=== PATIENT | female | born 1990 | race Caucasian/White ===

== ENCOUNTER 2018-05-30 17:30 | Outpatient (RCR) | payer OTHER, MEDICAID, SELFPAY ==
--- NOTE | 2018-05-31 07:36 | HP.PTREVAL_ITS ---
BI BIRD, It has been my pleasure to treat EVE SUBRAMANIAN over the last 5 visits for Mid- back strain. Please see the progress note below for an update on the physical therapy plan of care! Subjective: Pt. reports 'I am 100% better. She reports no pain at work at this point in time. Pt pleased. Objective/Function: PT. jimmy full ROM of cspine, tspine and lumbar spine without increase in symptoms. No symptoms with over pressures as this point in time. Pt. has 5/5 strength throughout B shoulder, scapular musculature without increase in symptoms. pt. reports no pain at work and no difficulty with sleeping. Pt. reprots being 100% better overall. Plan Plan: Pt. to trial exercises on own for 1-2 weeks. If I do not hear from her after this time period I will DC to [facility]. Pt. consents. Goals Goal 1:: pt reports 0/10 pain in effected musculature at rest Goal Time Frame: 2-4 Weeks Goal Progress: Goal Met Goal 2:: pt able to move through full shoulder range of motion without pain Goal Time Frame: 2-4 Weeks Goal Progress: Goal Met Goal 3:: pt reports no pain when lifting 2-year-old son Goal Time Frame: 2-4 Weeks Goal Progress: Goal Met Anticipated Interventions Patient/Client Instruction: Educate patient on: Condition, Plan of Care, Risk Factors, Benefits of Fitness Program For the Purpose of:: To decrease pain, To increase ROM, To improve muscle performance and motor function, To increase tolerance to activity/condition/position Therapeutic Exercise to Include: Strength training, Power training, Body mechanics, Postural training, Scapular Strength/Stabilization For the Purpose of:: To decrease pain, To increase ROM, To improve muscle performance and motor function, To increase tolerance to activity/conditi on/position, To improve ability of physical actions for home/community/work/leisure, To improve health of tissue Manual Therapy Techniques to Include: Trigger point massage, Massage, Functional dry needling For the Purpose of:: To decrease pain, To decrease swelling/inflammation, To increase ROM, To improve muscle performance and motor function, To improve ability of physical actions for home/community/work/leisure TENS: Yes Other electric stimulation: Yes Cryotherapy (ice pack, ice massage): Yes For the Purpose of:: To decrease pain, To decrease swelling/inflammation, To increase ROM, To improve muscle performance and motor function, To increase tolerance to activity/condition/position, To improve ability of physical actions for home/community/work/leisure Please do not hesitate to contact me at [phone] by phone or Fax: if you have questions or concerns regarding this new plan of care! Sincerely, Patrick Marrero
--- NOTE | 2018-10-28 09:37 | HP.PT.NRP ---
HP - Discharge Summary (1) - Patient Information EVE SUBRAMANIAN was seen in my office for initial evaluation on 04/27/18. The following Plan of Care was established for this patient: Initial Frequency: 2-3x /Week Initial Duration: 4 Weeks - Anticipated Interventions Patient/Client Instruction: Educate patient on: Condition, Plan of Care, Risk Factors, Benefits of Fitness Program For the Purpose of:: To decrease pain, To increase ROM, To improve muscle performance and motor function, To increase tolerance to activity/condition/position Therapeutic Exercise to Include: Strength training, Power training, Body mechanics, Postural training, Scapular Strength/Stabilization For the Purpose of:: To decrease pain, To increase ROM, To improve muscle performance and motor function, To increase tolerance to activity/condition/position, To improve ability of physical actions for home/community/work/leisure, To improve health of tissue Manual Therapy Techniques to Include: Trigger point massage, Massage, Functional dry needling For the Purpose of:: To decrease pain, To decrease swelling/inflammation, To increase ROM, To improve muscle performance and motor function, To improve ability of physical actions for home/community/work/leisure TENS: Yes Other electric stimulation: Yes Cryotherapy (ice pack, ice massage): Yes For the Purpose of:: To decrease pain, To decrease swelling/inflammation, To increase ROM, To improve muscle performance and motor function, To increase tolerance to activity/condition/position, To improve ability of physical actions for home/community/work/leisure This patient was last seen in our office 05/30/18. Pertinent comments regarding their Physical therapy will appear below: Pt. was treated for her mid back strain. Pt. at our last visit with no longer having any pain. Pt. was to trial exercises on her own and follow up with PT if needed. Pt. has not been seen in several months and will be DC from PT at this point in time. At this point I will be discontinuing this patient from physical therapy. I would be happy to see this patient again in the future if found appropriate by the physician. Thank you! Patrick Marrero, LIUT
== END 2018-05-30 19:00 | disposition home or self-care (01) ==
LOC: PT 17:30
PROVIDERS: Family Provider Student in an Organized Health Care Education/Training Program; PCP Student in an Organized Health Care Education/Training Program
DX: S29.012D Strain of muscle and tendon of back wall of thorax, subsequent encounter (principal)
CPT/HCPCS: 97110; 97161; 97530

== ENCOUNTER → 2018-06-07 16:40 | Outpatient (CLI) | payer MEDICAID, SELFPAY ==
[2018-06-15 12:51] LABS: HPV APTIMA, High Risk Negative (Negative)
[2018-06-15 15:58] LABS: HPV Reflexed? NOT INDICATED
== END ==
PROVIDERS: Visit Provider Obstetrics & Gynecology
DX: Z12.4 Encounter for screening for malignant neoplasm of cervix (principal)
CPT/HCPCS: 87624; 88175; G0145

== ENCOUNTER → 2019-09-28 10:52 | Outpatient (CLI) | payer OTHER, SELFPAY ==
[2019-10-02 19:12] LABS: HPV Reflexed? NOT INDICATED
== END ==
PROVIDERS: Visit Provider Obstetrics & Gynecology
DX: Z12.4 Encounter for screening for malignant neoplasm of cervix (principal)
CPT/HCPCS: 88175; G0145

== ENCOUNTER → 2020-04-02 15:47 | Outpatient (CLI) | payer OTHER, SELFPAY ==
[2016-06-30 19:36] VITALS: BMI 31.9
[2020-04-02 16:50] LABS: hCG Titer Quant., Serum < 1 mIU/mL (1-3)
[2020-04-02 17:18] LABS: Progesterone Level 6.25 ng/mL (See Comment)
== END ==
PROVIDERS: Visit Provider Obstetrics & Gynecology
DX: N91.0 Primary amenorrhea (principal)
CPT/HCPCS: 36415; 84144; 84702

== ENCOUNTER 2021-04-01 16:57 | Emergency (ER) | payer OTHER, MEDICAID, SELFPAY ==
[2021-04-01 16:59] VITALS: BP 113/66; PULSE 73; RESP 16; TEMP 36.6; O2SAT 100; BMI 30.9
[2021-04-01 18:59] VITALS: PULSE 79; RESP 15; O2SAT 99
--- NOTE | 2021-04-01 19:11 | EDS_ITS ---
HPI History of Present Illness Chief Complaint: Nausea/Vomiting Informant: patient Narrative Narrative: Patient is a 30-year-old female, , currently about 6 weeks presenting with dizziness, lightheadedness and vomiting. Patient states that her last menstrual period was February 05. She has a first appointment to see her HOUSEKEEPER MANAGER, Nica Dunne tomorrow. For the past 4 days she has had worsening nausea, vomiting and decreased oral intake. She has not had a bowel movement for the past 2 days as well. She is been peeing less today. She notes last week she was having some spotting but this is resolved. She denies any associate abdominal pain. She denies any fever or shortness of breath. She denies any sick contacts but was recently in [place] on vacation. Patient is not had her Covid vaccine. Patient notes that she had morning sickness in her first but it was nothing this bad. PFSH PFSH Home Medications cephalexin 500 mg PO BID #10 cap 04/01/21 [Rx Last Taken Unknown] ondansetron HCl [Zofran] 4 mg PO Q6H PRN #14 tab 04/01/21 [Rx Last Taken Unknown] Allergy/AdvReac Type Severity Reaction Status Date / Time hydrocodone AdvReac Vomiting Verified 04/01/21 17:02 Social History Smoking Status: Current every day smoker tobacco type: cigarettes ROS ROS ED Constitutional Constitutional ED: Reports fatigue, malaise, weakness and other Details: Lightheaded ; Denies chills or fever(s) Eyes Eyes: Denies blurry vision or loss of vision ENT ENT ED: Denies rhinorrhea or sore throat Cardiovascular Cardiovascular: Denies chest pain or dizziness Respiratory/Chest Respiratory/Chest: Denies cough or dyspnea Gastrointestinal Gastrointestinal: Reports constipation, nausea and vomiting; Denies abdominal pain or diarrhea Genitourinary Genitourinary ED: Denies dysuria or hematuria Musculoskeletal Musculoskeletal: Denies arthralgias or myalgias Integumentary Denies rash or wounds Neurologic Neurologic: Denies focal weakness or headache(s) Psychiatric Psychiatric: Denies anxiety or behavioral changes EXAM Physical Exam Const Vital Signs: 04/01/21 16:59 04/01/21 18:59 Temperature 97.8 F Temperature Source Temporal Pulse Rate 73 79 Respiratory Rate 16 15 Blood Pressure 113/66 Blood Pressure Mean 81 Pulse Ox 100 99 Oxygen Delivery Method Room Air Room Air Positive well nourished, well developed and no apparent distress General Appearance ED: well developed HEENT Reports normocephalic atraumatic; Negative for trauma or tenderness Nose: no nasal discharge External Ear: external ears normal Mouth ED: Yes moist mucous membranes normal Eyes PERRL and EOMs intact bilaterally Neck full ROM, no lymphadenopathy, supple, no meningeal signs and no JVD Chest Wall inspection of chest normal Resp normal respiratory effort and normal air movement Cardio regular rate and regular rhythm GI normal to inspection, nondistended, normoactive bowel sounds and non-tender Back/Spine no CVA tenderness Extremity normal to inspection and full ROM Neuro oriented x3, CN's II-XII intact bilaterally and no focal motor deficits Sensorium / Orientation: alert Motor Exam: Negative for general weakness Psych mental status grossly normal and thought process normal Skin no rashes or lesions noted and no wounds MDM MDM MDM Narrative Medical decision making narrative: Patient evaluated for lightheadedness, nausea and vomiting. She is . She does not have any abdominal pain. Urinalysis concerning for UTI with positive nitrates, 500 esterase, 25-50 white blood cells and 2+ bacteria. She started on Keflex and urine culture is sent off. She has appointment tomorrow to see her HOUSEKEEPER MANAGER. Patient is given IV fl uids and IV Zofran in the ER. She has improvement of her symptoms. She is able to eat crackers. She is counseled on the risk and benefits of Zofran in and is agreeable with receiving the Zofran. She be discharged home with prescription for Zofran as well as Keflex. Patient is counseled on signs and symptoms requiring return to the emergency room. Patient verbalizes agreement and understand this plan. Patient discharged home in stable and improved condition. Lab Data Attestation: I reviewed the patient's lab results. Labs: Laboratory Results - last 24 hr 04/01/21 04/01/21 04/01/21 19:10 19:30 19:30 Sodium 138 Potassium 3.7 Chloride 106 Carbon Dioxide 24.0 Anion Gap 8 BUN 13 Creatinine 0.83 Estim Creat Clear Calc 87.14 Est GFR (MDRD) Af Amer 104 Est GFR (MDRD) Non-Af 86 BUN/Creatinine Ratio 15.6 Glucose 75 Calcium 8.8 Total Bilirubin 0.60 AST 16 ALT 23 Alkaline Phosphatase 70 Total Protein 7.4 Albumin 3.8 Globulin 3.6 Albumin/Globulin Ratio 1.1 Lipase 45 L HCG, Quant Serum , Qual POSITIVE H Urine Color Yellow Urine Clarity Cloudy Urine pH 6.5 Ur Specific [place] 1.025 Urine Protein 30 H Urine Glucose (UA) Normal Urine Ketones 150 A* Urine Occult Blood 25 H Urine Nitrite Positive H Urine Bilirubin 1 H Urine Urobilinogen 12 H Ur Leukocyte Esterase 500 H Urine RBC 0-5 SEEN Urine WBC 25-50 SEEN Ur Squamous Epith Cells 0-5 SEEN Urine Bacteria 2+ Urine Mucus 2+ 04/01/21 19:30 Sodium Potassium Chloride Carbon Dioxide Anion Gap BUN Creatinine Estim Creat Clear Calc Est GFR (MDRD) Af Amer Est GFR (MDRD) Non-Af BUN/Creatinine Ratio Glucose Calcium Total Bilirubin AST ALT Alkaline Phosphatase Total Protein Albumin Globulin Albumin/Globulin Ratio Lipase HCG, Quant 69394 H Serum , Qual Urine Color Urine Clarity Urine pH Ur Specific [place] Urine Protein Urine Glucose (UA) Urine Ketones Urine Occult Blood Urine Nitrite Urine Bilirubin Urine Urobilinogen Ur Leukocyte Esterase Urine RBC Urine WBC Ur Squamous Epith Cells Urine Bacteria Urine Mucus Discharge Plan Triage Chief Complaint: Nausea/Vomiting ED Provider: Meaghan Gong Dx/Rx/DC Orders Clinical Impression: Acute dehydration, Urinary tract infection, Instructions: ED , New Dx, ED CYSTITIS Female Adult, ED Vomiting (Adult) Prescriptions: New cephalexin 500 mg capsule 500 mg PO BID Qty: 10 RF: 0 ondansetron HCl [Zofran] 4 mg tablet 4 mg PO Q6H PRN (Reason: nausea and vomiting) Qty: 14 RF: 0 Primary Care Provider: Care Physician,No Primary Referrals: Amanda Quintana MD [STAFF PHYSICIAN] - Care Physician,No Primary [Primary Care Provider] - Disposition Disposition: Home, Self Care
[2021-04-01] MEDS: 0.9% Normal Saline 1,000 ML 1000 ML IV (19:24)
[2021-04-01] MEDS: Ondansetron 4 MG/2 ML Vial IV (19:24)
[2021-04-01 19:33] LABS: Color, Urine Yellow (Yellow); Glucose, Dipstick Normal (Normal); Leukocyte Esterase-Dipstick 500 /ul (Negative); Nitrite-Dipstick Positive (Negative); Occult Blood-Urine 25 /ul (Negative); Protein-Dipstick 30 mg/dl (Negative); Specific Gravity, Urine 1.025 (1.002-1.030); Urine Clarity Cloudy (Clear); Urine Urobilinogen 12 mg/dl (Normal); Urine pH 6.5 (5.0 - 8.0)
[2021-04-01 19:35] LABS: Urine Bilirubin Dipstick 1 mg/dL (Negative)
[2021-04-01 19:36] LABS: Ketone-Dipstick 150 mg/dl (Negative)
[2021-04-01 19:56] LABS: Internal QC Validated? YES +Cl - CLEAR BKGD; Pregnancy, Serum, hCG Quali. POSITIVE Negative
[2021-04-01 20:07] LABS: ALB/GLOB Ratio 1.1 RATIO (0.9-2.4); AST(SGOT) 16 U/L (15-37); Alanine Aminotransfer ALT/SGPT 23 U/L (13-56); Albumin, Serum 3.8 g/dL (3.2-5.0); Alkaline Phosphatase 70 U/L (45-117); Anion Gap 8 (5-15); BUN 13 mg/dL (7-18); BUN/Creat Ratio 15.6 RATIO (10-20); Calcium,Total 8.8 mg/dL (8.5-10.1); Chloride 106 mmol/L (98-107); Creatinine, Serum 0.83 mg/dL (0.55-1.02); EST Glomerular Filtration Rate 86 mL/min (>60); Est Glom Filt Rate - Afr Amer 104 mL/min (>60); Estimated Creatinine Clearance 87.14 ml/min; Globulin 3.6 g/dL (2.2-4.2); Glucose 75 mg/dL (74-106); Lipase 45 U/L (73-393); Potassium 3.7 mmol/L (3.5-5.1); Protein, Total 7.4 g/dL (6.4-8.2); Sodium Level 138 mmol/L (136-145)
[2021-04-01 20:18] LABS: Bacteria 2+ /hpf (None Seen); Mucous, Urine 2+ /hpf (<or=2+); Red Blood Cells-Urine 0-5 SEEN /hpf (0-5); Squamous Epithelial Cells - UA 0-5 SEEN /hpf (5-10); White Blood Cells 25-50 SEEN /hpf (0-5)
[2021-04-01] MEDS: Cephalexin 250 MG Capsule 500 MG PO (21:25)
[2021-04-01 21:26] VITALS: BP 112/79; PULSE 63; RESP 16
== END 2021-04-01 21:56 | disposition home or self-care (01) ==
PROVIDERS: Emergency Provider Emergency Medicine
DX: O26.891 Other specified pregnancy related conditions, first trimester (principal); O23.41 Unspecified infection of urinary tract in pregnancy, first trimester; O99.331 Smoking (tobacco) complicating pregnancy, first trimester; E86.0 Dehydration; F17.210 Nicotine dependence, cigarettes, uncomplicated; Z3A.01 Less than 8 weeks gestation of pregnancy
CPT/HCPCS: 80053; 81001; 83690; 84702; 84703; 87086; 87088; 87426; 96361; 96374; 99284; J7030; A4216; J2405

== ENCOUNTER → 2021-04-02 15:30 | Outpatient (CLI) | payer OTHER, MEDICAID, SELFPAY ==
[2021-04-02 15:51] LABS: Absolute Lymphocyte Count 3.12 X10^3/uL (0.83-4.51); Absolute Neutrophil Count 6.2 X10^3/uL (2.0-7.7); Basophil# 0.05 X10^3/uL; Basophil% 0.5 % (0-1); Eosinophil# 0.07 X10^3/uL; Eosinophils% 0.7 % (0-5); Hematocrit 37.7 % (37-47); Hemoglobin 12.7 g/dL (12.0-15.0); Lymphocyte # 3.12 X10^3/ul (0.83-4.51); Lymphocyte % 31.2 % (19-41); Mean Corp Hgb Conc 33.7 g/dL (32-36); Mean Corpuscular Hgb 30.9 pg (27.0-32.0); Mean Corpuscular Volume 91.7 fL (81-99); NRBC Flagged by Analyzer 0 % (0-5); Neutrophil # 6.23 X10^3/uL (2.7-7.7); Neutrophil % 62.4 % (47-70); Platelet Count 277 K/mm3 (150-450); RBC Distribution Width CV 12.6 % (11.6-14.6); RBC Distribution Width SD 41.9 fl (35.1-43.9); Red Blood Count 4.11 M/mm3 (4.2-5.4)
[2021-04-02 15:55] LABS: Color, Urine Yellow (Yellow); Glucose, Dipstick Normal (Normal); Ketone-Dipstick 50 mg/dl (Negative); Leukocyte Esterase-Dipstick 100 /ul (Negative); Nitrite-Dipstick Negative (Negative); Occult Blood-Urine 10 /ul (Negative); Protein-Dipstick 30 mg/dl (Negative); Specific Gravity, Urine 1.015 (1.002-1.030); Urine Clarity Cloudy (Clear); Urine Urobilinogen 12 mg/dl (Normal); Urine pH 6.5 (5.0 - 8.0)
[2021-04-02 16:03] LABS: Amphetamine Urine VISTA NEGATIVE (<1000 ng/mL); Barbiturate Urine VISTA NEGATIVE (< 200 ng/mL); Benzodiazepine Urine VISTA NEGATIVE (< 200 ng/mL); Cocaine Urine VISTA NEGATIVE (< 300 ng/mL); Ecstacy Urine VISTA NEGATIVE (< 500 ng/mL); Methadone Urine VISTA NEGATIVE (< 300 ng/mL); PCP Urine VISTA NEGATIVE (< 25 ng/mL); THC Urine VISTA NEGATIVE (< 50 ng/mL); Urine Bilirubin Dipstick 1 mg/dL (Negative); Vista UDS pH Range 6
[2021-04-02 18:03] LABS: Thyroid Stim Hormone (TSH) 2.19 uIU/mL (0.358-3.74)
[2021-04-03 11:31] LABS: HIV - WCH Non-Reactive (Nonreactive); Hepatitis B Surface Antigen Non-Reactive (Nonreactive); Hepatitis C Antibody Non-Reactive (Nonreactive); Rubella IgG Reactive (Nonreactive); Syphilis Antibodies Non-reactive
[2021-04-05 03:07] LABS: Chlamydia By Nucleic Acid AMP Negative (Negative)
[2021-04-05 14:28] LABS: Gonococcus By Nucleic Acid AMP Negative (Negative)
== END ==
PROVIDERS: Visit Provider Obstetrics & Gynecology
DX: Z34.81 Encounter for supervision of other normal pregnancy, first trimester (principal)
CPT/HCPCS: 36415; 80307; 81002; 84443; 85025; 86703; 86762; 86780; 86803; 87086; 87340; 87491; 87591

== ENCOUNTER 2021-04-14 20:30 | Emergency (ER) | payer OTHER, MEDICAID, SELFPAY ==
[2021-04-14 20:30] VITALS: BP 111/79; PULSE 75; RESP 18; TEMP 36.2; O2SAT 100; BMI 33.7
[2021-04-14] MEDS: 0.9% Normal Saline 1,000 ML 999 ML IV (22:16)
[2021-04-14] MEDS: Ondansetron 4 MG/2 ML Vial IV (22:16)
[2021-04-14 22:19] LABS: Absolute Neutrophil Count 9.5 X10^3/uL (2.0-7.7); Basophil# 0.08 X10^3/uL; Basophil% 0.6 % (0-1); Eosinophil# 0.17 X10^3/uL; Eosinophils% 1.2 % (0-5); Hematocrit 41.3 % (37-47); Hemoglobin 13.7 g/dL (12.0-15.0); Lymphocyte % 23.4 % (19-41); Mean Corp Hgb Conc 33.2 g/dL (32-36); Mean Corpuscular Hgb 31.5 pg (27.0-32.0); Mean Corpuscular Volume 94.9 fL (81-99); Monocyte# 0.69 X10^3/uL; NRBC Flagged by Analyzer 0 % (0-5); Neutrophil # 9.52 X10^3/uL (2.7-7.7); Neutrophil % 69.6 % (47-70); Platelet Count 266 K/mm3 (150-450); RBC Distribution Width CV 12.9 % (11.6-14.6); RBC Distribution Width SD 45.1 fl (35.1-43.9); Red Blood Count 4.35 M/mm3 (4.2-5.4); White Blood Count 13.7 K/mm3 (4.4-11.0)
--- NOTE | 2021-04-14 22:19 | EDS_ITS ---
HPI History of Present Illness Chief Complaint: Nausea/Vomiting Informant: patient Narrative Narrative: Patient presents with nausea vomiting. This is a G2, P1 female proximately 8 weeks gestation. She did not have much problems with her first . However, she has had problems with this for several weeks. She gets nausea and vomiting intermittently throughout the day. Its not initiated by any specific event or food. She has had no fevers chills or coughing. She is not having abdominal pain. She had a UTI but was treated and finished her medications midweek. She does not have UTI symptoms at all now. She has tried oral Zofran and ODT Zofran without significant benefit. No other meds have been tried. She came in tonight just because she cannot keep anything down. No chronic medical conditions Medications include Zofran and multivitamins No abdominal surgery Allergies to hydrocodone Lives with is a smoker. PFSH PFSH Medical History no medical history Home Medications ondansetron HCl [Zofran] 4 mg PO Q6H PRN #14 tab 04/01/21 [Rx Last Taken Unknown] doxylamine-pyridoxine (vit B6) [Diclegis] 1 tab PO BID #20 tab 04/15/21 [Rx Last Taken Unknown] promethazine 25 mg PO TID PRN #20 tab 04/15/21 [Rx Last Taken Unknown] Allergy/AdvReac Type Severity Reaction Status Date / Time hydrocodone AdvReac Vomiting Verified 04/14/21 22:17 Social History Smoking Status: Current every day smoker tobacco type: cigarettes ROS ROS ED Constitutional Constitutional ED: Denies chills or fever(s) Eyes Eyes: Denies blurry vision ENT ENT ED: Denies rhinorrhea or sore throat Cardiovascular Cardiovascular: Denies chest pain or palpitations Respiratory/Chest Respiratory/Chest: Denies cough, dyspnea or sputum Gastrointestinal Gastrointestinal: Reports nausea and vomiting; Denies abdominal pain, constipation, diarrhea or melena Genitourinary Genitourinary ED: Denies dysuria, hematuria or urinary frequency Musculoskeletal Musculoskeletal: Denies back pain Integumentary Denies rash Neurologic Neurologic: Denies paresthesias or weakness Endocrine Endocrinology: Denies polydipsia or polyuria Allergic/Immunologic Allergic/Immunologic ED: Denies urticaria EXAM Physical Exam Const Vital Signs: 04/14/21 20:30 04/15/21 00:00 Temperature 97.2 F L Temperature Source Temporal Pulse Rate 75 Respiratory Rate 18 16 Blood Pressure 111/79 Blood Pressure Mean 89 Pulse Ox 100 Oxygen Delivery Method Room Air Positive well nourished and well developed General Appearance ED: well developed and NAD HEENT Reports dry mucous membranes HEENT Narrative: Mildly dry mucous membrane Mouth ED: Yes dry mucous membranes Mouth: dry mucous membranes Eyes General Eye ED: Negative for pale conjunctiva or scleral icterus Neck no JVD Resp normal respiratory effort and clear to auscultation bilaterally Auscultation: Negative for rales, rhonchi or wheezes Cardio regular rate and regular rhythm GI normal to inspection, nondistended, normoactive bowel sounds and non-tender GI Narrative: Abdomen is very benign on exam. Palpation: soft Back/Spine no CVA tenderness Extremity normal to inspection General Extremety ED: Negative for edema or tenderness General Extremity: Negative for edema Neuro Sensorium / Orientation: alert Psych mental status grossly normal Skin no rashes or lesions noted MDM MDM MDM Narrative Medical decision making narrative: Patient initially was not a lot better with Zofran. However, she had not vomited here once. We gave her some Phenergan as well as. Oxine. She feels much better. She would like to go. I will add Phenergan to her regimen. We will also add Diclegis. She will follow up with her OB physician. Lab Data Attestation: I reviewed the patient's lab results. Labs: Laboratory Results - last 24 hr 04/14/21 04/14/21 04/14/21 22:12 22:12 23:00 WBC 13.7 H RBC 4.35 Hgb 13.7 Hct 41.3 MCV 94.9 MCH 31.5 MCHC 33.2 RDW Std Deviation 45.1 H RDW Coeff of Sil 12.9 Plt Count 266 MPV 9.0 Immature Gran % (Auto) 0.200 Neut % (Auto) 69.6 Lymph % (Auto) 23.4 [place] % (Auto) 5.0 Eos % (Auto) 1.2 Baso % (Auto) 0.6 Absolute Neuts (auto) 9.5 H Absolute Lymphs (auto) 3.20 Nucleated RBC % 0 Sodium 136 Potassium 4.0 Chloride 106 Carbon Dioxide 24.0 Anion Gap 6 BUN 13 Creatinine 0.89 Estim Creat Clear Calc 81.26 Est GFR (MDRD) Af Amer 97 Est GFR (MDRD) Non-Af 80 BUN/Creatinine Ratio 14.6 Glucose 89 Calcium 9.2 Urine Color Yellow Urine Clarity Clear Urine pH 6.0 Ur Specific [place] 1.010 Urine Protein 30 H Urine Glucose (UA) Normal Urine Ketones 50 H Urine Occult Blood 10 H Urine Nitrite Negative Urine Bilirubin Negative Urine Urobilinogen 8 H Ur Leukocyte Esterase 100 H Urine RBC 0-5 SEEN Urine WBC 0-5 SEEN Ur Squamous Epith Cells 0-5 SEEN Urine Bacteria 3+ Urine Mucus 0 SEEN Discharge Plan Triage Chief Complaint: Nausea/Vomiting ED Provider: Ángel Guevara Dx/Rx/DC Orders Clinical Impression: Hyperemesis gravidarum Instructions: ED Hyperemesis Gravidarum Prescriptions: New doxylamine-pyridoxine (vit B6) [Diclegis] 10-10 mg tablet,delayed release (DR/EC) 1 tab PO BID Qty: 20 RF: 0 promethazine 25 mg tablet 25 mg PO TID PRN (Reason: nausea and vomiting) Qty: 20 RF: 0 No Action ondansetron HCl [Zofran] 4 mg tablet 4 mg PO Q6H PRN (Reason: nausea and vomiting) Qty: 14 RF: 0 Stand Alone Forms: ED Work / School Excuse Primary Care Provider: Care Physician,No Primary Referrals: Care Physician,No Primary [Primary Care Provider] - Activity Restrictions/Additional Instructions: Follow-up with your organic gardening teacher in the next 1 to 3 days. Disposition Disposition: Home, Self Care
[2021-04-14 22:33] LABS: Anion Gap 6 (5-15); BUN 13 mg/dL (7-18); BUN/Creat Ratio 14.6 RATIO (10-20); Calcium,Total 9.2 mg/dL (8.5-10.1); Chloride 106 mmol/L (98-107); Creatinine, Serum 0.89 mg/dL (0.55-1.02); EST Glomerular Filtration Rate 80 mL/min (>60); Est Glom Filt Rate - Afr Amer 97 mL/min (>60); Estimated Creatinine Clearance 81.26 ml/min; Glucose 89 mg/dL (74-106); Sodium Level 136 mmol/L (136-145)
[2021-04-14] MEDS: DiphenhydrAMINE 50 MG/ML Syringe 25 MG IV (22:41)
[2021-04-14] MEDS: proMETHazine 25 MG/ML Syringe 12.5 MG IV (23:43)
[2021-04-15] VITALS: RESP 16
[2021-04-15] MEDS: Pyridoxine HCl 50 MG Tablet 25 MG PO
[2021-04-15 00:06] LABS: Mucous, Urine 0 SEEN /hpf (<or=2+)
[2021-04-15 00:15] LABS: Color, Urine Yellow (Yellow); Glucose, Dipstick Normal (Normal); Ketone-Dipstick 50 mg/dl (Negative); Leukocyte Esterase-Dipstick 100 /ul (Negative); Nitrite-Dipstick Negative (Negative); Occult Blood-Urine 10 /ul (Negative); Protein-Dipstick 30 mg/dl (Negative); Urine Bilirubin Dipstick Negative (Negative); Urine Clarity Clear (Clear); Urine Urobilinogen 8 mg/dl (Normal)
[2021-04-15 00:17] LABS: Bacteria 3+ /hpf (None Seen); Red Blood Cells-Urine 0-5 SEEN /hpf (0-5); Squamous Epithelial Cells - UA 0-5 SEEN /hpf (5-10); White Blood Cells 0-5 SEEN /hpf (0-5)
== END 2021-04-15 02:33 | disposition home or self-care (01) ==
PROVIDERS: Emergency Provider Emergency Medicine
DX: O21.0 Mild hyperemesis gravidarum (principal); O99.331 Smoking (tobacco) complicating pregnancy, first trimester; F17.210 Nicotine dependence, cigarettes, uncomplicated; Z3A.08 8 weeks gestation of pregnancy
CPT/HCPCS: 80048; 81001; 85025; 96374; 96375; 99283; J7030; J2405

== ENCOUNTER 2021-04-30 10:15 | Observation (INO) | payer OTHER, MEDICAID, SELFPAY ==
[2021-04-30 10:16] VITALS: BP 126/86; PULSE 86; RESP 16; TEMP 36.3; O2SAT 100; BMI 30.3
--- NOTE | 2021-04-30 10:29 | EDS_ITS ---
HPI History of Present Illness Chief Complaint: Nausea/Vomiting Detail of Chief Complaint: Hyperemesis Informant: patient and other ([employer]) Onset/Context/Timing Onset: Weeks Narrative Narrative: Patient presents from OBs office secondary to hyperemesis and dehydration. Patient currently has a Zofran pump but is still unable to keep down anything other than Sprite. She had a 22 pound weight loss. She is currently 10 weeks 1 day. heart tones were checked in the office. Patient was sent over for IV fluids, labs, and admission. [facility] Medical History Hyperemesis Home Medications ondansetron HCl [Zofran] 4 mg PO Q6H PRN #14 tab 04/01/21 [Rx Last Taken Unknown] doxylamine-pyridoxine (vit B6) [Diclegis] 1 tab PO BID #20 tab 04/15/21 [Rx Last Taken Unknown] promethazine 25 mg PO TID PRN #20 tab 04/15/21 [Rx Last Taken Unknown] Allergy/AdvReac Type Severity Reaction Status Date / Time hydrocodone AdvReac Vomiting Verified 04/30/21 10:17 Social History Smoking Status: Current every day smoker tobacco type: cigarettes ROS ROS ED Constitutional Constitutional ED: Denies chills or fever(s) Eyes Eyes: Denies change in vision ENT ENT ED: Denies sore throat Cardiovascular Cardiovascular: Denies chest pain Respiratory/Chest Respiratory/Chest: Denies cough or dyspnea Gastrointestinal Gastrointestinal: Reports nausea and vomiting; Denies abdominal pain or diarrhea Genitourinary Genitourinary ED: Reports other Details: Decreased urinary output ; Denies dysuria Musculoskeletal Musculoskeletal: Denies back pain Integumentary Denies rash Neurologic Neurologic: Reports headache(s); Denies weakness Allergic/Immunologic Allergic/Immunologic ED: Denies urticaria EXAM Physical Exam Const Vital Signs: 04/30/21 10:16 Temperature 97.4 F L Temperature Source Temporal Pulse Rate 86 Respiratory Rate 16 Blood Pressure 126/86 H Blood Pressure Mean 99 Pulse Ox 100 Oxygen Delivery Method Room Air Positive well nourished and well developed General Appearance ED: well developed HEENT Reports normocephalic, head/scalp atraumatic and dry mucous membranes Mouth ED: Yes dry mucous membranes Mouth: dry mucous membranes Eyes PERRL and EOMs intact bilaterally Neck supple Chest Wall inspection of chest normal and palpation of chest normal Resp normal respiratory effort and clear to auscultation bilaterally Cardio regular rate and regular rhythm GI non-tender Auscultation: hypoactive bowel sounds Palpation: soft Extremity normal to inspection Neuro oriented x3 and no sensory deficits noted Sensorium / Orientation: alert Motor Exam: strength 5/5 throughout Psych mental status grossly normal Skin no rashes or lesions noted MDM MDM MDM Narrative Medical decision making narrative: Patient was given IV fluids, Reglan, and Benadryl. Lab work ordered. Lab Data Attestation: I reviewed the patient's lab results. Labs: Laboratory Results - last 24 hr 04/30/21 04/30/21 10:42 10:42 WBC 10.6 RBC 4.58 Hgb 14.3 Hct 41.0 MCV 89.5 MCH 31.2 MCHC 34.9 RDW Std Deviation 41.1 RDW Coeff of Sil 12.5 Plt Count 244 MPV 10.3 Immature Gran % (Auto) 0.300 Neut % (Auto) 70.7 H Lymph % (Auto) 19.6 [place] % (Auto) 7.8 Eos % (Auto) 1.1 Baso % (Auto) 0.5 Absolute Neuts (auto) 7.5 Absolute Lymphs (auto) 2.08 Nucleated RBC % 0 Sodium 136 Potassium 3.6 Chloride 102 Carbon Dioxide 23.0 Anion Gap 11 BUN 14 Creatinine 0.91 Estim Creat Clear Calc 79.48 Est GFR (MDRD) Af Amer 94 Est GFR (MDRD) Non-Af 78 BUN/Creatinine Ratio 15.3 Glucose 105 Calcium 9.6 Magnesium 2.2 Total Bilirubin 2.30 H AST 285 H ALT 819 H Alkaline Phosphatase 107 Total Protein 8.1 Albumin 3.5 Globulin 4.6 H Albumin/Globulin Ratio 0.8 L Treatment and Re-Evaluation Comments:: On repeat evaluation patient is sleeping comfortably. She is easily awoken. I will discuss her lab work with Dr. Norah Dunne and plan for admission. Discharge Plan Dx/Rx/DC Orders Clinical Impression: Hyperemesis Disposition Disposition: Acute Care Hospital [facility]
[2021-04-30] MEDS: Metoclopramide 10 MG/2 ML Vial IV (10:50)
[2021-04-30] MEDS: 0.9% Normal Saline 1,000 ML 1000 ML IV (10:50)
[2021-04-30] MEDS: DiphenhydrAMINE 50 MG/ML Syringe 12.5 MG IV (10:50)
[2021-04-30 10:51] LABS: Absolute Lymphocyte Count 2.08 X10^3/uL (0.83-4.51); Absolute Neutrophil Count 7.5 X10^3/uL (2.0-7.7); Basophil# 0.05 X10^3/uL; Basophil% 0.5 % (0-1); Eosinophil# 0.12 X10^3/uL; Eosinophils% 1.1 % (0-5); Hemoglobin 14.3 g/dL (12.0-15.0); Lymphocyte # 2.08 X10^3/ul (0.83-4.51); Lymphocyte % 19.6 % (19-41); Mean Corp Hgb Conc 34.9 g/dL (32-36); Mean Corpuscular Hgb 31.2 pg (27.0-32.0); Mean Corpuscular Volume 89.5 fL (81-99); Mean Platelet Vol. 10.3 fl (6.2-12.0); Monocyte# 0.83 X10^3/uL; Monocyte% 7.8 % (0-10); NRBC Flagged by Analyzer 0 % (0-5); Neutrophil # 7.52 X10^3/uL (2.7-7.7); Neutrophil % 70.7 % (47-70); Platelet Count 244 K/mm3 (150-450); RBC Distribution Width CV 12.5 % (11.6-14.6); RBC Distribution Width SD 41.1 fl (35.1-43.9); Red Blood Count 4.58 M/mm3 (4.2-5.4); White Blood Count 10.6 K/mm3 (4.4-11.0)
[2021-04-30 11:08] LABS: ALB/GLOB Ratio 0.8 RATIO (0.9-2.4); AST(SGOT) 285 U/L (15-37); Alanine Aminotransfer ALT/SGPT 819 U/L (13-56); Albumin, Serum 3.5 g/dL (3.2-5.0); Alkaline Phosphatase 107 U/L (45-117); Anion Gap 11 (5-15); BUN 14 mg/dL (7-18); BUN/Creat Ratio 15.3 RATIO (10-20); Calcium,Total 9.6 mg/dL (8.5-10.1); Chloride 102 mmol/L (98-107); Creatinine, Serum 0.91 mg/dL (0.55-1.02); EST Glomerular Filtration Rate 78 mL/min (>60); Est Glom Filt Rate - Afr Amer 94 mL/min (>60); Estimated Creatinine Clearance 79.48 ml/min; Globulin 4.6 g/dL (2.2-4.2); Glucose 105 mg/dL (74-106); Magnesium 2.2 mg/dL (1.6-2.6); Potassium 3.6 mmol/L (3.5-5.1); Protein, Total 8.1 g/dL (6.4-8.2); Sodium Level 136 mmol/L (136-145)
[2021-04-30] MEDS: 0.9% Normal Saline 1,000 ML 150 ML IV (12:07)
[2021-04-30 12:27] VITALS: BP 101/65; PULSE 81; RESP 15; TEMP 36.8; O2SAT 98
--- NOTE | 2021-04-30 13:27 | NURSING ---
213 OBS HYPERMESIS VIOLETTE NELSON
[2021-04-30 13:48] VITALS: BMI 30.3
[2021-04-30 13:53] VITALS: BP 100/64; PULSE 62; RESP 16; TEMP 36.1; O2SAT 100
[2021-04-30] MEDS: Metoclopramide 10 MG/2 ML Vial 5 MG IV ×2 (14:33→20:55)
[2021-04-30] MEDS: proMETHazine 25 MG Suppos. RC (14:33)
[2021-04-30 14:36] LABS: Color, Urine Amber (Yellow); Glucose, Dipstick Normal (Normal); Leukocyte Esterase-Dipstick 500 /ul (Negative); Nitrite-Dipstick Negative (Negative); Occult Blood-Urine 10 /ul (Negative); Protein-Dipstick 30 mg/dl (Negative); Specific Gravity, Urine 1.015 (1.002-1.030); Urine Clarity Cloudy (Clear); Urine Urobilinogen 12 mg/dl (Normal)
[2021-04-30 14:38] LABS: Urine Bilirubin Dipstick 3 mg/dL (Negative)
[2021-04-30 14:40] LABS: Ketone-Dipstick 150 mg/dl (Negative)
[2021-04-30 14:43] LABS: Bacteria 2+ /hpf (None Seen); Red Blood Cells-Urine 0-5 SEEN /hpf (0-5); Squamous Epithelial Cells - UA 5-10 SEEN /hpf (5-10); White Blood Cells 5-10 SEEN /hpf (0-5)
[2021-04-30 14:44] LABS: Mucous, Urine 1+ /hpf (<or=2+)
--- NOTE | 2021-04-30 16:45 | PCM.HP.OB ---
HPI - General General Date of Admission: 04/30/21 HPI Narrative EVE HULL, is a 30 F who presents at 10w1d with persistent nausea and vomiting in refractory to a Zofran pump. She was sent to the ER from the office. She has lost 22lb thus far. Previously failed promethazine suppository, PO Reglan, but did not consistently use prior medications today. Maternal Data Information KERRIE Calculator Estimated Delivery Date Method Current WG Current Estimate 11/25/21 Ultrasound #1 10w 3d PFSH PFSH Medical History Hyperemesis Medical History no medical history Home Medications ondansetron HCl [Zofran] 4 mg PO Q6H PRN #14 tab 04/01/21 [Rx Last Taken Unknown] Allergy/AdvReac Type Severity Reaction Status Date / Time hydrocodone AdvReac Vomiting Verified 04/30/21 10:17 Social History Smoking Status: Former smoker History 2 Elective abortions Hx Para 1 Spontaneous abortions Hx # Term Pregnancies 1 Ectopic pregnancies Hx # Pregnancies Multiple births # of living children 1 Vital Signs Vital Signs Vital Signs: 04/30/21 10:16 04/30/21 12:27 04/30/21 13:53 Temperature 97.4 F L 98.3 F 96.9 F L Temperature Source Temporal Temporal Oral Pulse Rate 86 81 62 Respiratory Rate 16 15 16 Blood Pressure 126/86 H 101/65 100/64 Blood Pressure Mean 99 77 76 Blood Pressure Source Monitor Blood Pressure Position Semi-Fowlers Blood Pressure Location Right Arm Pulse Ox 100 98 100 Oxygen Delivery Method Room Air Room Air Room Air 04/30/21 20:47 05/01/21 02:50 05/01/21 05:18 Temperature 98.2 F 99.3 F H 97.8 F Temperature Source Oral Oral Oral Pulse Rate 75 68 74 Respiratory Rate 16 16 16 Blood Pressure 80/41 L 88/53 L 86/46 L Blood Pressure Mean 54 64 59 Blood Pressure Source Monitor Monitor Monitor Blood Pressure Position Semi-Fowlers Semi-Fowlers Semi-Fowlers Blood Pressure Location Right Arm Right Arm Right Arm Pulse Ox 99 99 99 Oxygen Delivery Method Room Air Room Air Room Air Weight Weight: 80.104 kg Body Mass Index (BMI) 30.3 Physical Exam Const alert, oriented x3 and no apparent distress HEENT Mouth: dry mucous membranes Resp normal respiratory effort Cardio regular rhythm, S1 normal heart sound and S2 normal heart sound Rate: tachycardic GI normal to inspection, nondistended, normoactive bowel sounds, soft to palpation and non-tender Extremity no pedal edema General Extremity: calf tenderness Labs Labs Labs: Blood Type O POSITIVE Antibody Screen NEGATIVE Hct 41.0 % (37-47) Hgb 14.3 g/dL (12.0-15.0) Syphilis Total Ab Non-reactive Rubella IgG Antibody Reactive (Nonreactive) Hep Bs Antigen Non-Reactive (Nonreactive) Neisseria gonorrhoeae DNA (PAM) Negative (Negative) HIV 1&2 Antibody Non-Reactive (Nonreactive) C.trachomatis DNA (PCR) Negative (Negative) Glucose 1 Hr 50 gm 84 mg/dL (70-140) Group B Strep DNA Negative (Negative) Rhogam given: No Assessment & Plan (1) Hyperemesis: PLAN: Continue home Zofran pump Reglan around the clock and Promethazine ordered Associated transaminitis - f/u LFTs (2) Acute dehydration: (3) : QUALIFIERS: Weeks of gestation: 10 weeks Qualified Code(s): Z3A.10 - 10 weeks gestation of COMMENT: Continue IVF hydration, clear ketones PLAN: FHT in office this morning normal
[2021-04-30] MEDS: Dext 5%-0.45% NS 1,000 ML 120 ML IV (16:48)
[2021-04-30 20:47] VITALS: BP 80/41; PULSE 75; RESP 16; TEMP 36.8; O2SAT 99
[2021-05-01] MEDS: Dext 5%-0.45% NS 1,000 ML 120 ML IV ×3 (01:08→17:43)
[2021-05-01 02:50] VITALS: BP 88/53; PULSE 68; RESP 16; TEMP 37.4; O2SAT 99
[2021-05-01 05:18] VITALS: BP 86/46; PULSE 74; RESP 16; TEMP 36.6; O2SAT 99
[2021-05-01] MEDS: Metoclopramide 10 MG/2 ML Vial 5 MG IV (05:21)
[2021-05-01 06:30] LABS: ALB/GLOB Ratio 0.7 RATIO (0.9-2.4); AST(SGOT) 168 U/L (15-37); Alanine Aminotransfer ALT/SGPT 524 U/L (13-56); Albumin, Serum 2.3 g/dL (3.2-5.0); Alkaline Phosphatase 75 U/L (45-117); Anion Gap 8 (5-15); BUN 5 mg/dL (7-18); BUN/Creat Ratio 7.2 RATIO (10-20); Calcium,Total 8.1 mg/dL (8.5-10.1); Chloride 106 mmol/L (98-107); EST Glomerular Filtration Rate 106 mL/min (>60); Est Glom Filt Rate - Afr Amer 129 mL/min (>60); Estimated Creatinine Clearance 103.32 ml/min; Globulin 3.4 g/dL (2.2-4.2); Glucose 99 mg/dL (74-106); Potassium 3.1 mmol/L (3.5-5.1); Protein, Total 5.7 g/dL (6.4-8.2); Sodium Level 138 mmol/L (136-145)
[2021-05-01 08:32] VITALS: BP 88/53; PULSE 71; RESP 16; TEMP 36.3; O2SAT 99
[2021-05-01] MEDS: Potassium Chloride 10mEq/100mL 10 MEQ/100 ML IV.SOLN. 100 MEQ IV BOLUS ×4 (11:11→14:38)
[2021-05-01] MEDS: Metoclopramide 5 MG TABLET PO ×3 (11:13→21:57)
[2021-05-01 11:31] VITALS: BP 85/48; PULSE 66; RESP 16; TEMP 36.6; O2SAT 100
[2021-05-01 12:29] LABS: Color, Urine Yellow (Yellow); Glucose, Dipstick Normal (Normal); Ketone-Dipstick Negative (Negative); Leukocyte Esterase-Dipstick 25 /ul (Negative); Nitrite-Dipstick Negative (Negative); Occult Blood-Urine Negative /ul (Negative); Protein-Dipstick Negative (Negative); Specific Gravity, Urine 1.005 (1.002-1.030); Urine Bilirubin Dipstick Negative (Negative); Urine Clarity Sl. Cloudy (Clear); Urine Urobilinogen 8 mg/dl (Normal)
[2021-05-01 14:46] VITALS: BP 102/59; PULSE 77; RESP 16; TEMP 36.4; O2SAT 97
[2021-05-01 21:52] VITALS: BP 108/66; PULSE 60; RESP 16; TEMP 36.7; O2SAT 94
[2021-05-02] MEDS: Dext 5%-0.45% NS 1,000 ML 120 ML IV (01:44)
--- NOTE | 2021-05-02 04:00 | PCS.PANDOC ---
PANDEMIC DOCUMENTATION INITIATED: Date: 04/30/2021 Time: 190
[2021-05-02 04:54] VITALS: BP 107/63; PULSE 78; RESP 16; TEMP 36.5; O2SAT 99
[2021-05-02] MEDS: Metoclopramide 5 MG TABLET PO ×3 (04:56→16:07)
[2021-05-02 07:29] LABS: ALB/GLOB Ratio 0.7 RATIO (0.9-2.4); AST(SGOT) 130 U/L (15-37); Alanine Aminotransfer ALT/SGPT 455 U/L (13-56); Albumin, Serum 2.4 g/dL (3.2-5.0); Alkaline Phosphatase 75 U/L (45-117); Anion Gap 8 (5-15); BUN 1 mg/dL (7-18); BUN/Creat Ratio 1.5 RATIO (10-20); Calcium,Total 8.4 mg/dL (8.5-10.1); Chloride 106 mmol/L (98-107); Creatinine, Serum 0.66 mg/dL (0.55-1.02); EST Glomerular Filtration Rate 113 mL/min (>60); Est Glom Filt Rate - Afr Amer 137 mL/min (>60); Estimated Creatinine Clearance 109.58 ml/min; Globulin 3.4 g/dL (2.2-4.2); Glucose 85 mg/dL (74-106); Potassium 3.3 mmol/L (3.5-5.1); Protein, Total 5.8 g/dL (6.4-8.2); Sodium Level 139 mmol/L (136-145)
--- NOTE | 2021-05-02 08:48 | PCM.PN.OB ---
Subjective Subjective No further vomiting. Last emesis 48h ago. She still has nausea, but is tolerating small amounts of food with each meal. Denies painfulness. She is tired. Objective Data Objective Data Vital Signs: Vital Signs Temp Pulse Resp BP Pulse Ox 97.7 F L 78 16 107/63 99 05/02/21 04:54 05/02/21 04:54 05/02/21 04:54 05/02/21 04:54 05/02/21 04:54 Oxygen Delivery Method Room Air Weight: 80.104 kg Body Mass Index (BMI) 30.3 Intake & Output: Intake and Output for Last 24 Hours 04/30/21 05/01/21 05/02/21 23:59 23:59 23:59 Intake Total 1767.5 / 1767.5 4654 / 4654 962 / 962 Balance 1767.5 / 1767.5 4654 / 4654 962 / 962 Medical Nutrition Assessment Dietitian: Malnutrition Criteria Met Start: 04/30/21 16:59 Freq: Status: Active Protocol: Document 04/30/21 16:59 SLA (Rec: 04/30/21 16:59 SLA [id number]) Nutrition Malnutrition Evidence of Malnutrition Exists Yes Malnutrition (severe): Acute Illness/Injury Evidenced By Suboptimal Energy Intake ( Severe),Weight Loss (Severe) Clinical Problem Acute Disease or Injury Related Malnutrition Etiology related to issues w/ hyperemesis gravidarum and inability to consume adequate nutrition to meet pt est nutritional needs Signs/Symptoms as evidenced by <50% po intake and 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 Lab / Micro Data Result Diagrams: 04/30/21 10:42 05/02/21 06:07 Labs: Laboratory Results - last 24 hr 05/01/21 12:20: Urine Color Yellow, Urine Clarity Sl. Cloudy, Urine pH 7.0, Ur Specific [place] 1.005, Urine Protein Negative, Urine Glucose (UA) Normal, Urine Ketones Negative, Urine Occult Blood Negative, Urine Nitrite Negative, Urine Bilirubin Negative, Urine Urobilinogen 8 H, Ur Leukocyte Esterase 25 H 05/02/21 06:07: Sodium 139, Potassium 3.3 L, Chloride 106, Carbon Dioxide 25.0, Anion Gap 8, BUN 1 L, Creatinine 0.66, Estim Creat Clear Calc 109.58, Est GFR (MDRD) Af Amer 137, Est GFR (MDRD) Non-Af 113, BUN/Creatinine Ratio 1.5 L, Glucose 85, Calcium 8.4 L, Total Bilirubin 1.10 H, AST 130 H, ALT 455 H, Alkaline Phosphatase 75, Total Protein 5.8 L, Albumin 2.4 L, Globulin 3.4, Albumin/Globulin Ratio 0.7 L Physical Exam Const alert, oriented x3 and no apparent distress General Appearance: cooperative and comfortable HEENT normocephalic Resp normal respiratory effort and normal air movement Cardio regular rate and regular rhythm GI soft to palpation, non-tender and non-distended Extremity no calf tenderness and no pedal edema Assessment & Plan (1) Hyperemesis: PLAN: Improving Continue Zofran pump and PO Reglan Plan for d/c home later today (2) Acute dehydration: PLAN: Resolved (3) Hypokalemia: PLAN: Replete IV today
[2021-05-02] MEDS: Potassium Chloride 10mEq/100mL 10 MEQ/100 ML IV.SOLN. 100 MEQ IV BOLUS ×4 (09:48→13:39)
[2021-05-02 09:57] VITALS: BP 104/66; PULSE 55; RESP 16; TEMP 36.4; O2SAT 97
--- NOTE | 2021-05-02 14:42 | CASEMGMT ---
Social Work Consult: FMLA/Disability questions per Dr. Hernandez Met with patient in room. Introduced self and social welfare research worker role. Patient agreeable to speak with this social welfare research worker. Patient with questions about FMLA and short-term disability. Patient reports to be employed through [employer]. This social welfare research worker encouraging patient to speak with HR department at work. Patient reports to be speaking with HR but to be frustrated that it appears that patient will have to use FMLA prior to being able to utilize short-term disability. Patient concerned that patient will not have maternity leave time for when the baby comes. This social welfare research worker encouraged patient to look at employee hand book and continue speaking with employer. Patient also concerned about possibility of loosing insurance if patient is not able to return to work. This social welfare research worker directing patient to speak with [employer], patient reports to be familiar with [employer] as patient 5 year old son and are both currently utilizing Medicaid as health insurance. Support provided throughout conversation. This social welfare research worker inquired about how patient is doing mentally/emotionally. Patient states okay. Winifred QUEEN, LELA
--- NOTE | 2021-05-02 15:22 | CASEMGMT ---
JOHNNIE HAYWOOD NOTE: JOHNNIE HAYWOOD informed pt had concerns re: Zofran pump and on-going coverage. JOHNNIE HAYWOOD to room to talk w/pt. Pt states she just wanted to make sure she was discharged home w/an order to continue the Zofran pump. JOHNNIE Mahmood, states is awaiting d/c orders from Dr Hernandez and will watch for this. Pt states she gets delivery of weekly supply of medication for the Zofran pump from [facility] and that she just received a delivery to her home today. She denies other home-going needs or concerns at this time. Mark BSN JOHNNIE CM
[2021-05-02 16:08] VITALS: BP 115/70; PULSE 74; RESP 18; TEMP 36.4; O2SAT 100
== END 2021-05-02 16:55 | disposition home or self-care (01) ==
LOC: ED 12:08 → MS2 12:46
PROVIDERS: Admitting Provider Obstetrics & Gynecology; Emergency Provider Emergency Medicine; Visit Provider Obstetrics & Gynecology
DX: O21.1 Hyperemesis gravidarum with metabolic disturbance (principal); Z3A.10 10 weeks gestation of pregnancy; F17.210 Nicotine dependence, cigarettes, uncomplicated; O99.331 Smoking (tobacco) complicating pregnancy, first trimester
CPT/HCPCS: 36415; 80053; 81001; 81002; 83735; 85025; 96361; 96374; 96375; 96376; 97802; 99218; 99284; 99406; J7030; J7040; A4216; G0378; J7799

== ENCOUNTER → 2021-06-30 15:16 | Outpatient (CLI) | payer OTHER, MEDICAID, SELFPAY | PROVIDERS: Visit Provider Student in an Organized Health Care Education/Training Program | DX: Z34.81 Encounter for supervision of other normal pregnancy, first trimester (principal); N39.0 Urinary tract infection, site not specified | CPT/HCPCS: 87086; 87088 ==

== ENCOUNTER 2021-07-02 18:10 | Emergency (ER) | payer OTHER, MEDICAID, SELFPAY ==
[2021-07-02 18:12] VITALS: BP 129/72; PULSE 101; RESP 18; TEMP 36.1; O2SAT 97; BMI 34.7
[2021-07-02 18:55] VITALS: BP 101/65; PULSE 92; RESP 16; RESP 18; TEMP 36.1; O2SAT 98
--- NOTE | 2021-07-02 18:55 | EDS_ITS ---
HPI History of Present Illness Chief Complaint: Flank Pain Informant: patient and spouse/S.O. Onset/Context/Timing Onset: Days (Onset 8 days ago) Context: Sudden Onset Timing: Intermittent and Waxes and wanes Quality: Pain Location: Initially right groin now right flank Current Severity: Mild Maximum Severity: Severe Worsened by: Lying on her right side occasionally Relieved by: Nothing Associated Symptoms Associated Symptoms: Hyperemesis gravidarum on Zofran pump Narrative Narrative: Patient is a 30-year-old G2, P1 female who was sent in by her OB because of right groin pain initially started 8 days ago. She is now complaining of right flank pain. She denies history of renal ureterolithiasis. There is no family history of renal ureterolithiasis. She denies dysuria, frequency, urgency or hematuria. She denies vaginal bleeding. He states she has not had vomiting recently. There is no history of trauma. She denies history of pyelonephritis. She has not noted a rash. She states her gallbladder is still in. Her appendix is still in. Prior similar symptoms: Yes Recent Illness/Hospital[facility]: [facility] Medical History Hyperemesis Home Medications metoclopramide HCl 5 mg PO Q6H #60 tab 05/02/21 [Rx Last Taken Unknown] ondansetron HCl 8 mg IM Q1H PRN 30 Days #0.5 ml 05/02/21 [Rx Last Taken Unknown] cephalexin [Keflex] 500 mg PO 4X/DAY 07/02/21 [History Last Taken Unknown] Allergy/AdvReac Type Severity Reaction Status Date / Time hydrocodone AdvReac Vomiting Verified 07/02/21 18:11 Social History (Updated 07/02/21 @ 19:[address] Cali Ferris MD) household members: spouse and children Smoking Status: Former smoker alcohol intake: former substance use type: does not use ROS ROS ED Constitutional Constitutional ED: Denies chills, fever(s), subjective, sweats or weight loss Eyes Eyes: Denies blurry vision, change in vision or diplopia ENT ENT ED: Denies ear pain, rhinorrhea or sore throat Cardiovascular Cardiovascular: Denies chest pain, orthopnea, palpitations or racing heartbeat Respiratory/Chest Respiratory/Chest: Denies cough, dyspnea, dyspnea on exertion, orthopnea or sputum Gastrointestinal Gastrointestinal: Reports abdominal pain and nausea; Denies constipation, diarr hea or vomiting Genitourinary Genitourinary ED: Reports other Details: Second trimester, 19 weeks ; Denies dysuria, hematuria or urinary frequency Musculoskeletal Musculoskeletal: Reports back pain; Denies arthralgias, myalgias or neck pain Integumentary Denies rash Neurologic Neurologic: Denies paresthesias or weakness EXAM Physical Exam Const Vital Signs: 07/02/21 18:12 07/02/21 18:55 Temperature 97 F L 97 F L Temperature Source Temporal Temporal Pulse Rate 101 H 92 Respiratory Rate 18 18 Respiratory Effort Normal Non-Labored Respiratory Pattern Normal Blood Pressure 129/72 H 101/65 Blood Pressure Mean 91 77 Pulse Ox 97 98 Oxygen Delivery Method Room Air Room Air Positive well nourished and well developed General Appearance ED: well developed and NAD; Negative for cyanotic, diaphoretic or pallor HEENT Reports moist mucous membranes Negative for trauma or tenderness Eyes PERRL and EOMs intact bilaterally General Eye ED: Negative for pale conjunctiva or scleral icterus Neck no lymphadenopathy, supple and no JVD General: Negative for tenderness Chest Wall inspection of chest normal and palpation of chest normal Resp normal respiratory effort and clear to auscultation bilaterally Cardio regular rate, regular rhythm, S1 normal heart sound, S2 normal heart sound and no murmurs GI normal to inspection, nondistended, normoactive bowel sounds, non-tender and non-distended GI Narrative: There is no inguinal hernia. Inspection: Negative for abdominal distention Palpation: soft; Negative for mass Back/Spine no CVA tenderness Thoracic Spine / Upper Back: Negative for thoracic spinal tenderness or paraspinal muscle tenderness Extremity normal to inspection General Extremety ED: Negative for edema or tenderness General Extremity: Negative for edema Neuro No oriented x3, CN's II-XII intact bilaterally and no sensory deficits noted Sensorium / Orientation: alert Motor Exam: strength 5/5 throughout Psych mental status grossly normal Skin no rashes or lesions noted, no wounds and skin turgor normal General Skin Exam: Negative for jaundice or pallor MDM MDM MDM Narrative Medical decision making narrative: Patient presents with abdominal pain. This may be abdominal pain unknown etiology. This also may be due to obstructing ureteral stone, infection, doubt appendicitis based on location when it being intermittent. This may represent broad ligament strain. Lab Data Attestation: I reviewed the patient's lab results. Lab results narrative: White count slight elevated which may be due to . Electrolyte panel is unremarkable. Urine is unremarkable. Patient was discharged home. She was informed the cause of her pain is unknown. Labs: Laboratory Results - last 24 hr 07/02/21 07/02/21 07/02/21 18:50 18:51 18:51 WBC 12.7 H RBC 3.51 L Hgb 11.1 L Hct 33.3 L MCV 94.9 MCH 31.6 MCHC 33.3 RDW Std Deviation 47.3 H RDW Coeff of Sil 13.7 Plt Count 329 MPV 8.7 Immature Gran % (Auto) 0.600 Neut % (Auto) 67.0 Lymph % (Auto) 24.4 [place] % (Auto) 6.4 Eos % (Auto) 1.3 Baso % (Auto) 0.3 Absolute Neuts (auto) 8.5 H Absolute Lymphs (auto) 3.10 Nucleated RBC % 0 Sodium 139 Potassium 3.8 Chloride 107 Carbon Dioxide 23.0 Anion Gap 9 BUN 8 Creatinine 0.70 Estim Creat Clear Calc 103.32 Est GFR (MDRD) Af Amer 127 Est GFR (MDRD) Non-Af 105 BUN/Creatinine Ratio 11.4 Glucose 136 H Calcium 8.7 Urine Color Yellow Urine Clarity Clear Urine pH 7.0 Ur Specific Koppel 1.015 Urine Protein 15 H Urine Glucose (UA) 50 H Urine Ketones 5 H Urine Occult Blood Negative Urine Nitrite Negative Urine Bilirubin Negative Urine Urobilinogen 8 H Ur Leukocyte Esterase 500 H Urine RBC 0 SEEN Urine WBC 0-5 SEEN Ur Squamous Epith Cells 5-10 SEEN Urine Bacteria RARE Urine Mucus 0 SEEN Discharge Plan Triage Chief Complaint: Flank Pain ED Provider: Clai Ferris Dx/Rx/DC Orders Clinical Impression: Right lower quadrant abdominal pain affecting in second trimester, Acute right flank pain Instructions: ED Abdominal Pain Unkn Cause Fem, ED Flank Pain, Uncertain Cause Prescriptions: No Action metoclopramide HCl 5 mg Tablet 5 mg PO Q6H Qty: 60 RF: 0 ondansetron HCl 2 mg/mL solution 8 mg IM Q1H PRN (Reason: nausea and vomiting) 30 Days Qty: 0.5 RF: 0 cephalexin [Keflex] 500 mg Capsule 500 mg PO 4X/DAY RF: 0 Primary Care Provider: Care Physician,No Primary Referrals: Amanda Quintana MD [STAFF PHYSICIAN] - 3-5 Days if not improving Care Physician,No Primary [Primary Care Provider] - Disposition Disposition: Home, Self Care
[2021-07-02 18:58] LABS: Mucous, Urine 0 SEEN /hpf (<or=2+); Red Blood Cells-Urine 0 SEEN /hpf (0-5)
[2021-07-02 18:59] LABS: Absolute Neutrophil Count 8.5 X10^3/uL (2.0-7.7); Basophil# 0.04 X10^3/uL; Basophil% 0.3 % (0-1); Eosinophil# 0.16 X10^3/uL; Eosinophils% 1.3 % (0-5); Hematocrit 33.3 % (37-47); Hemoglobin 11.1 g/dL (12.0-15.0); Lymphocyte % 24.4 % (19-41); Mean Corp Hgb Conc 33.3 g/dL (32-36); Mean Corpuscular Hgb 31.6 pg (27.0-32.0); Mean Corpuscular Volume 94.9 fL (81-99); Mean Platelet Vol. 8.7 fl (6.2-12.0); Monocyte# 0.81 X10^3/uL; Monocyte% 6.4 % (0-10); NRBC Flagged by Analyzer 0 % (0-5); Neutrophil # 8.53 X10^3/uL (2.7-7.7); Platelet Count 329 K/mm3 (150-450); RBC Distribution Width CV 13.7 % (11.6-14.6); RBC Distribution Width SD 47.3 fl (35.1-43.9); Red Blood Count 3.51 M/mm3 (4.2-5.4); White Blood Count 12.7 K/mm3 (4.4-11.0)
[2021-07-02 19:00] LABS: Color, Urine Yellow (Yellow); Glucose, Dipstick 50 mg/dl (Normal); Ketone-Dipstick 5 mg/dl (Negative); Leukocyte Esterase-Dipstick 500 /ul (Negative); Nitrite-Dipstick Negative (Negative); Occult Blood-Urine Negative /ul (Negative); Protein-Dipstick 15 mg/dl (Negative); Specific Gravity, Urine 1.015 (1.002-1.030); Urine Bilirubin Dipstick Negative (Negative); Urine Clarity Clear (Clear); Urine Urobilinogen 8 mg/dl (Normal)
[2021-07-02] MEDS: 0.9% Normal Saline 1,000 ML 250 ML IV (19:01)
[2021-07-02 19:05] LABS: Bacteria RARE /hpf (None Seen)
[2021-07-02 19:06] LABS: Squamous Epithelial Cells - UA 5-10 SEEN /hpf (5-10); White Blood Cells 0-5 SEEN /hpf (0-5)
[2021-07-02 19:12] LABS: Anion Gap 9 (5-15); BUN 8 mg/dL (7-18); BUN/Creat Ratio 11.4 RATIO (10-20); Calcium,Total 8.7 mg/dL (8.5-10.1); Chloride 107 mmol/L (98-107); EST Glomerular Filtration Rate 105 mL/min (>60); Est Glom Filt Rate - Afr Amer 127 mL/min (>60); Estimated Creatinine Clearance 103.32 ml/min; Glucose 136 mg/dL (74-106); Potassium 3.8 mmol/L (3.5-5.1); Sodium Level 139 mmol/L (136-145)
[2021-07-02 20:23] VITALS: BP 102/66; PULSE 91; O2SAT 99
== END 2021-07-02 20:30 | disposition home or self-care (01) ==
PROVIDERS: Emergency Provider Emergency Medicine
DX: O26.892 Other specified pregnancy related conditions, second trimester (principal); R10.31 Right lower quadrant pain; Z87.891 Personal history of nicotine dependence; Z3A.19 19 weeks gestation of pregnancy
CPT/HCPCS: 80048; 81001; 85025; 99283; J7030; A4216

== ENCOUNTER 2021-09-05 11:23 | Outpatient (CLI) | payer OTHER, MEDICAID, SELFPAY ==
[2021-09-05 12:28] LABS: Hematocrit 29.3 % (37-47); Hemoglobin 9.6 g/dL (12.0-15.0); Mean Corp Hgb Conc 32.8 g/dL (32-36); Mean Corpuscular Hgb 30.4 pg (27.0-32.0); Mean Corpuscular Volume 92.7 fL (81-99); Platelet Count 342 K/mm3 (150-450); RBC Distribution Width CV 12.1 % (11.6-14.6); RBC Distribution Width SD 41.5 fl (35.1-43.9); Red Blood Count 3.16 M/mm3 (4.2-5.4); White Blood Count 11.9 K/mm3 (4.4-11.0)
[2021-09-05 12:35] LABS: Glucose Challenge Gest 1H 50g 200 mg/dL (70-140)
== END 2021-09-05 23:59 | disposition home or self-care (01) ==
LOC: WOBLAB 11:24
PROVIDERS: Visit Provider Obstetrics & Gynecology
DX: Z34.83 Encounter for supervision of other normal pregnancy, third trimester (principal)
CPT/HCPCS: 36415; 82950; 85027

== ENCOUNTER 2021-09-30 13:53 | Outpatient (CLI) | payer MEDICAID, SELFPAY ==
[2021-09-30 15:33] LABS: ALB/GLOB Ratio 0.7 RATIO (0.9-2.4); AST(SGOT) 8 U/L (15-37); Alanine Aminotransfer ALT/SGPT 11 U/L (13-56); Alkaline Phosphatase 101 U/L (45-117); Anion Gap 6 (5-15); BUN 8 mg/dL (7-18); BUN/Creat Ratio 13.8 RATIO (10-20); Calcium,Total 8.6 mg/dL (8.5-10.1); Chloride 104 mmol/L (98-107); Creatinine, Serum 0.58 mg/dL (0.55-1.02); EST Glomerular Filtration Rate 131 mL/min (>60); Est Glom Filt Rate - Afr Amer 158 mL/min (>60); Globulin 4.1 g/dL (2.2-4.2); Glucose 82 mg/dL (74-106); Potassium 4.1 mmol/L (3.5-5.1); Protein, Total 7.1 g/dL (6.4-8.2); Sodium Level 134 mmol/L (136-145)
== END 2021-09-30 23:59 | disposition home or self-care (01) ==
PROVIDERS: Visit Provider Obstetrics & Gynecology
DX: Z34.83 Encounter for supervision of other normal pregnancy, third trimester (principal); L29.8 Other pruritus
CPT/HCPCS: 36415; 80053

== ENCOUNTER 2021-10-06 01:20 | Outpatient (CLI) | payer MEDICAID, SELFPAY ==
[2021-10-06 01:35] VITALS: BMI 36.0
[2021-10-06 01:39] VITALS: TEMP 36.3
[2021-10-06 01:43] VITALS: BP 123/78; PULSE 120; O2SAT 96
[2021-10-06] MEDS: Lactated Ringers 1,000 ML 999 ML IV (02:35)
[2021-10-06 02:36] LABS: Color, Urine Yellow (Yellow); Glucose, Dipstick 1000 mg/dl (Normal); Ketone-Dipstick Negative (Negative); Leukocyte Esterase-Dipstick 500 /ul (Negative); Nitrite-Dipstick Negative (Negative); Occult Blood-Urine 10 /ul (Negative); Protein-Dipstick 15 mg/dl (Negative); Urine Bilirubin Dipstick Negative (Negative); Urine Clarity Clear (Clear); Urine Urobilinogen Normal (Normal)
[2021-10-06] MEDS: Lactated Ringers 1,000 ML 125 ML IV (03:39)
--- NOTE | 2021-10-06 04:43 | PCM.PN.BLA ---
Progress Note 31-year-old G 2P1 at 32/6 weeks, [facility] 11/26/2019 2 by 6-week ultrasound, presenting with contractions. Contractions started last night around 11 PM. They are about 3 to 5 minutes apart for 2 hours. Since arriving to triage contraction strength is decreased. Denies leaking of fluid, vaginal bleeding, reports normal movement. Denies any herpes prodromal symptoms, herpes lesions, tingling or pain. Reports 2 small bumps on her labia that she says is not painful and found during shower, wonders if it is ingrown hair. Denies headache, vision changes, chest pain or shortness of breath, nausea or vomiting outside of her normal hyperemesis, fevers or chills, diarrhea constipation. complicated by: Anemia, history of HSV, gestational diabetes, tobacco use, severe nausea and vomiting CLINICAL DOCUMENTATION MANAGER history: G1: 2016 39-week G2: Current Medical history: 1. History of HSV Surgical history: Denies Allergies: Hydrocodone Social history: Reports tobacco use, denies alcohol or drug use Family history: Noncontributory Review of systems: Negative otherwise stated above Physical exam Blood pressure 111/67, pulse 86, Temp 97.4 ?F, pulse ox 96% on room air General: Comfortable in bed, in no acute distress HEENT: Normocephalic/atraumatic Cardiorespiratory: No increased effort Abdomen: Soft, nontender, gravid, obese Extremities: No edema SSE: 2 small papules right labia with bluish/purple hue, no HSV lesions of vulva vagina or cervix Cervical exam: External os soft and dilated to 1 cm, internal os closed x3 labs: O+ gonorrhea/chlamydia negative/negative Rubella immune Syphilis nonreactive HIV nonreactive Hepatitis B/hepatitis C negative/negative heart rate: 135/mod kim/+accel/no decel [place]: q4-8 A/P: 31-year-old G 2P1 at 32/6 weeks, [facility] 11/26/2019 2 by 6-week ultrasound, presenting with contractions. Improved strength. No cervical change. Not in labor. -IVF hydration -Papules - ingrown hair, no HSV lesions -Start HSV prophylaxis on discharge -Send GBS -GDMA1 -Treat for UTI -patient monitored for several hours without cervical change. Dx: contractions. Celestone not indicated due to GBS based on the ALPS trial. Additionally pt is not in labor. Encourage increased PO hydration. Rest when able. Pt to call or return for: Increase strength and frequency of contractions, vaginal bleeding, leaking of fluid, decreased movement. Patient aware and all questions answered.
[2021-10-06 04:46] VITALS: TEMP 36.3
[2021-10-06 04:47] VITALS: BP 111/67; PULSE 86
[2021-10-06 04:58] LABS: Mucous, Urine 0 SEEN /hpf (<or=2+)
[2021-10-06 05:00] LABS: Color, Urine Yellow (Yellow); Glucose, Dipstick 1000 mg/dl (Normal); Ketone-Dipstick Negative (Negative); Leukocyte Esterase-Dipstick 500 /ul (Negative); Nitrite-Dipstick Negative (Negative); Occult Blood-Urine 10 /ul (Negative); Protein-Dipstick 15 mg/dl (Negative); Urine Bilirubin Dipstick Negative (Negative); Urine Clarity Clear (Clear); Urine Urobilinogen Normal (Normal)
[2021-10-06 05:05] LABS: Red Blood Cells-Urine 0-5 SEEN /hpf (0-5); Squamous Epithelial Cells - UA 10-25 SEEN /hpf (5-10); White Blood Cells 10-25 SEEN /hpf (0-5)
[2021-10-06 05:06] LABS: Bacteria 3+ /hpf (None Seen)
[2021-10-06 06:09] VITALS: PULSE 78; O2SAT 97
[2021-10-06 06:51] LABS: Group B Strep DNA By PCR Negative (Negative); Internal Control PASS; Probe Check PASS; Specimen Processing Control PASS
== END 2021-10-06 23:59 | disposition home or self-care (01) ==
LOC: WPOUT 01:33 → WP 01:34
PROVIDERS: Referring Provider Student in an Organized Health Care Education/Training Program; Visit Provider Student in an Organized Health Care Education/Training Program
DX: O47.03 False labor before 37 completed weeks of gestation, third trimester (principal); O99.713 Diseases of the skin and subcutaneous tissue complicating pregnancy, third trimester; Z79.899 Other long term (current) drug therapy; Z3A.32 32 weeks gestation of pregnancy
CPT/HCPCS: 96365; 96366 ×2; 59025; 59050; 81001; 81002; 87081; 87653; 99218; J7120; G0378

== ENCOUNTER 2021-10-14 15:16 | Emergency (ER) | payer MEDICAID, SELFPAY ==
[2021-10-14 15:17] VITALS: BP 128/87; PULSE 78; RESP 18; TEMP 36.1; O2SAT 99; BMI 38.2
--- NOTE | 2021-10-14 15:39 | CT_ITS ---
STUDY: CT BRAIN WITHOUT CONTRAST REASON FOR EXAM: Female, 31 years old. dysphasia. at 34 weeks. SHIELD the abd RADIATION DOSAGE (If Supplied By Facility): CTDIvol = ( 47.06 ) mGy, DLP = ( 802.10 ) mGycm TECHNIQUE: Transaxial CT imaging of the brain was performed without administration of intravenous contrast material. Individualized dose optimization techniques were used for this CT. COMPARISON: No relevant priors. FINDINGS: Normal soft tissue structures. Normal calvarium. Normal size ventricles and extra-axial spaces for the patient''s age. Normal white matter tracts of the cerebral hemispheres. Normal basal ganglia and thalami. Normal brainstem. Normal cerebellum. There is no intracranial hemorrhage. There are no findings of an acute ischemic infarction. Normal visualized paranasal sinuses. CT/Brain/Head without Contrast IMPRESSION: Normal unenhanced CT scan of the brain. Electronically Signed: Jessenia Alaniz MD at 17:04 EDT Reading Location ID and State: [id number] / Tel , Service support ,
--- NOTE | 2021-10-14 15:40 | EDS_ITS ---
HPI History of Present Illness Chief Complaint: Headache Informant: patient Onset/Context/Timing Onset: Today and Yesterday Context: Gradual Timing: Continuous Current Severity: Mild Maximum Severity: Mild Associated Symptoms/Injury Associated Symptoms: Positive for Numbness and Photophobia; Negative for Fever, Nausea, Vomiting, Sore Throat, Sinus Pressure, Tingling, Preceding Aura, Visual Changes, Blurred Vision and Visual Loss Injury - [place]: Negative for Direct Trauma, Fall and Assault Narrative Narrative: 30-year-old female currently 34 weeks with gestational diabetes. She is G2, P1 Ab0. Patient started headache yesterday was gradual onset. Long time felt dizzy. Some of that seemed to resolve. She also states she had tunnel vision. Then developed. Some numbness in her right hand. Denies weakness. Headache now a central line her left eye but is improving on its own. She does have a history of migraines. She denies any head trauma she is on no blood thinners. She was seen today in her OBs office heart tones were fine and her blood sugar earlier today was 81. Prior similar symptoms: Yes Recent Illness/Hospitalization: No PFSH PFSH Medical History Hyperemesis IBS (irritable bowel syndrome) Home Medications metoclopramide HCl 5 mg PO Q6H #60 tab 05/02/21 [Rx Last Taken 10/05/21 2200] ondansetron HCl 4 mg PO Q8H 10/06/21 [History Last Taken Unknown] cephalexin 500 mg PO Q6H 10/14/21 [History Last Taken Unknown] valacyclovir 1,000 mg PO DAILY 10/14/21 [History Last Taken Unknown] Allergy/AdvReac Type Severity Reaction Status Date / Time hydrocodone AdvReac Vomiting Verified 10/14/21 15:19 Social History household members: spouse and children Smoking Status: Former smoker alcohol intake: former substance use type: does not use ROS ROS ED ROS Narrative Headache. Review of Systems ROS Unobtainable: Denies due to encephalopathy Constitutional Constitutional ED: Denies chills or fever(s) Eyes Eyes: Denies change in vision ENT ENT ED: Denies ear pain Cardiovascular Cardiovascular: Denies chest pain Respiratory/Chest Respiratory/Chest: Denies dyspnea Gastrointestinal Gastrointestinal: Denies abdominal pain or diarrhea Genitourinary Genitourinary ED: Denies dysuria Musculoskeletal Musculoskeletal: Denies myalgias Integumentary Denies rash Neurologic Neurologic: Reports headache(s) and paresthesias Psychiatric Psychiatric: Denies depression Endocrine Endocrinology: Denies polyuria Hematologic/Lymphatic Hematologic/Lymphatic: Denies easy bruising Allergic/Immunologic Allergic/Immunologic ED: Denies urticaria EXAM Physical Exam Narrative Exam Narrative: 22-year-old female no acute distress vital signs stable afebrile. Blood pressure 128/87. H EENT exam normal. No facial droop. Normal speech. Extraocular motions are intact. Tongue midline. Neck nontender. Lungs clear to auscultation. Heart regular rate and rhythm no murmur rate about 80. Abdomen soft nondistended normal bowel sounds no peritoneal signs. Gravid uterus consistent with 34 weeks. Moving all 4 extremities. Nontender. No edema. Neurologically she is awake and alert with no focal motor deficits. NIH score is 0. Normal speech. No facial droop. Tongue midline. 5/5 viscera washer strength bilaterally. Normal sensation. Dorsi plantarflexion intact. No drift bilaterally. Fingertip to nose within normal limits. [id number] within normal limits bilaterally. Const Vital Signs: 10/14/21 15:17 Temperature 96.9 F L Temperature Source Temporal Pulse Rate 78 Respiratory Rate 18 Blood Pressure 128/87 H Blood Pressure Mean 100 Pulse Ox 99 Oxygen Delivery Method Room Air Positive well nourished and well developed; Negative for cachectic, contractures or unkempt General Appearance ED: well developed and NAD; Negative for unkempt, cachectic, contractures, cyanotic, diaphoretic or pallor Nutritional Appearance: Negative for cachectic HEENT Reports normocephalic and moist mucous membranes atraumatic; Negative for trauma Eyes PERRL and EOMs intact bilaterally Neck no lymphadenopathy, supple, no meningeal signs and no JVD General: Negative for tenderness Resp normal respiratory effort and clear to auscultation bilaterally Auscultation: Negative for rales, rhonchi or wheezes Cardio regular rate, regular rhythm, S1 normal heart sound, S2 normal heart sound and no murmurs GI non-tender and non-distended Auscultation: normoactive bowel sounds Palpation: soft; Negative for firm, tender, guarding or rigid Back/Spine no CVA tenderness Extremity normal to inspection and full ROM General Extremety ED: Negative for edema or tenderness General Extremity: Negative for edema Neuro oriented x3, CN's II-XII intact bilaterally and no sensory deficits noted Sensorium / Orientation: awake, alert, oriented to person, oriented to place and oriented to time; Negative for orientation impaired, lethargic or stuporous Coordination / Balance: [id number] test normal and [id number] test normal Speech: speech normal Motor Exam: strength 5/5 throughout; Negative for general weakness or strength abnormal Psych mental status grossly normal Appearance: Negative for unkempt Mood & Affect: Negative for depressed or tearful Skin General Skin Exam: Negative for jaundice or pallor Lesions: no lesions Rashes: no rashes MDM MDM MDM Narrative Medical decision making narrative: 31-year-old female 34 weeks . Headache behind her left eye. Transient numbness to her right hand. However, neurologic exam is completely normal at this time. FIELD INSURANCE SALES MANAGER sent her to the emergency department for evaluation. She will receive a CAT scan of her brain and will shield her abdomen. She does not need any lab work today. Repeat exam patient is doing well at 5:25 PM. Neurologic exam is normal. We discussed her normal CAT scan results. She will be discharged home. Tylenol for pain. Return if worse. Radiography Diagnostic Testing: Clinical Impression(s) from Imaging Studies Brain CT 10/14/21 15:39 IMPRESSION: Normal unenhanced CT scan of the brain. Electronically Signed: Jessenia Alaniz MD at 17:04 EDT Reading Location ID and State: [id number] / Tel , Service support , Discharge Plan Triage Chief Complaint: Headache ED Provider: Toby Wolf Dx/Rx/DC Orders Clinical Impression: Headache, Instructions: ED Headache Unspecified Prescriptions: No Action metoclopramide HCl 5 mg Tablet 5 mg PO Q6H Qty: 60 RF: 0 ondansetron HCl 4 mg Tablet 4 mg PO Q8H RF: 0 valacyclovir 1 gram tablet 1,000 mg PO DAILY RF: 0 cephalexin 500 mg capsule 500 mg PO Q6H RF: 0 Primary Care Provider: Care Physician,No Primary Referrals: Amanda Quintana MD [STAFF PHYSICIAN] - As Needed Care Physician,No Primary [Primary Care Provider] - Activity Restrictions/Additional Instructions: Plenty of fluids and rest. Tylenol for any pain Return if a lot worse or follow-up with your FIELD INSURANCE SALES MANAGER as needed. Disposition Disposition: Home, Self Care
[2021-10-14 17:31] VITALS: PULSE 88; RESP 16; O2SAT 99
== END 2021-10-14 17:32 | disposition home or self-care (01) ==
PROVIDERS: Emergency Provider Emergency Medicine; Visit Provider Emergency Medicine
DX: O26.893 Other specified pregnancy related conditions, third trimester (principal); O24.419 Gestational diabetes mellitus in pregnancy, unspecified control; R51.9 Headache, unspecified; Z3A.34 34 weeks gestation of pregnancy; Z87.891 Personal history of nicotine dependence; Z79.899 Other long term (current) drug therapy
CPT/HCPCS: 70450; 99282

== ENCOUNTER 2021-11-06 15:31 | Outpatient (CLI) | payer MEDICAID, SELFPAY ==
[2021-11-06 18:31] LABS: Group B Strep DNA By PCR Negative (Negative); Internal Control PASS; Probe Check PASS; Specimen Processing Control PASS
== END 2021-11-06 23:59 | disposition home or self-care (01) ==
LOC: LABSPEC 15:32
PROVIDERS: Referring Provider Obstetrics & Gynecology; Visit Provider Obstetrics & Gynecology
DX: Z36.85 Encounter for antenatal screening for Streptococcus B (principal)
CPT/HCPCS: 87081; 87653

== ENCOUNTER 2021-11-07 23:25 | Inpatient (IN) | payer MEDICAID, SELFPAY ==
[2021-11-07] VITALS (24 sets, daily range): BP systolic 111–136; BP diastolic 64–82; PULSE 93–108; TEMP 37.2; O2SAT 96–99; BMI 38.7
[2021-11-07] MEDS: Lactated Ringers 500 ML 999 ML IV (23:45)
[2021-11-08] VITALS (62 sets, daily range): BP systolic 95–147; BP diastolic 52–80; PULSE 85–116; RESP 16–18; TEMP 36.3–37.5; O2SAT 91–100
[2021-11-08 00:05] LABS: Absolute Lymphocyte Count 3.54 X10^3/uL (0.83-4.51); Absolute Neutrophil Count 8.9 X10^3/uL (2.0-7.7); Basophil# 0.02 X10^3/uL; Basophil% 0.1 % (0-1); Eosinophil# 0.09 X10^3/uL; Eosinophils% 0.7 % (0-5); Hematocrit 30.6 % (37-47); Hemoglobin 9.9 g/dL (12.0-15.0); Lymphocyte # 3.54 X10^3/ul (0.83-4.51); Mean Corp Hgb Conc 32.4 g/dL (32-36); Mean Corpuscular Hgb 27.8 pg (27.0-32.0); Mean Platelet Vol. 9.4 fl (6.2-12.0); Monocyte# 0.99 X10^3/uL; Monocyte% 7.3 % (0-10); NRBC Flagged by Analyzer 0 % (0-5); Neutrophil # 8.87 X10^3/uL (2.7-7.7); Neutrophil % 65.3 % (47-70); Platelet Count 413 K/mm3 (150-450); RBC Distribution Width CV 14.2 % (11.6-14.6); RBC Distribution Width SD 44.7 fl (35.1-43.9); Red Blood Count 3.56 M/mm3 (4.2-5.4); White Blood Count 13.6 K/mm3 (4.4-11.0)
[2021-11-08] MEDS: Lactated Ringers 1,000 ML 200 ML IV ×2 (00:16→06:16)
[2021-11-08 00:41] LABS: Bedside Glucose 66 mg/dL (74-106)
[2021-11-08 00:41] LABS: Bedside Glucose 75 mg/dL (74-106)
--- NOTE | 2021-11-08 01:32 | PCM.HP.BLA ---
History and Physical Date of Admission: 11/07/21 ACOG ANTEPARTUM RECORD - HISTORY AND PHYSICAL (11/08/2021) Name: EVE HULL History of this : This is a 31 year old [id number] presents at 37 wks + 4 days gestation with non-reassuring FHTs. OB Physician: Amanda Dunne MD [facility] Physician: PED TECHNICAL REPORT WRITER ...................................................................... : 1990 Age: 31 Address: [address] [place] [address] Phone: [phone] Insurance Carrier: [employer] CLAIMS DEPT [id number] Emergency Contact: ASHLEE HULL [phone] ...................................................................... Final KERRIE: 11/25/21 By Ultrasound: 6 weeks 1 day PARITY: (G-Total Pregnancies P-Fullterm,Premature,Induced AB,Spont AB, Ectopics, Multiple,Living) KERRIE CONFIRMATION: By LMP: 02/05/21 Initial Exam: 11/25/21 By First Ultrasound Exam: 11/25/21 Final KERRIE: 11/25/21 OB PROBLEM LIST: Anemia EPDS = 5. Epidural planned. Undecided about feeding method. FOB born with Amblyopia Genetic and carrier screening declined. Sneak Peek drawn today. Gestational diabetes HSV - 36w ppx Pt has a cousin with Autism Quit smoking in 2020, then vape pen, quit with knowlwdge. Severe N/V with ALLERGIES: Hydrocodone Severe nausea & vomiting No Known Drug Allergies MEDICATIONS: cephalexin 500 mg capsule One pill by mouth twice a day cephalexin 500 mg tablet 1 tab four times daily cephalexin 500 mg tablet 1 tab four times daily for 7 days promethazine 25 mg rectal suppository insert one per rectum every 4 hours for nausea Reglan 10 mg tablet One pill by mouth every eight hours Reglan 5 mg tablet 1 tab po q6h prn nausea Vagicaine 5 %-2 % topical cream as needed valacyclovir 1 gram tablet One tab POI twice daily for 10 days Valtrex 1 gram tablet 1 tab daily Zofran 4 mg tablet 1 tab po tid x 48h then take tid prn nausea SOCIAL HISTORY: Smoking - used to smoke but quit Alcohol Use - denies drinking Diet - no special diet Lifestyle - Exercise - none Employer - [employer] Job Description - [employer] Illicit Drug Use - used street drugs before but quit Sexual Activity - single sexual partner Residence - lives with Place of - [place], [place] Hours Worked - 30-40 hr/wk Spouse-Sig Other Name - Ashlee Hull Spouse-Sig Other Occupation - Correspondence Analyst Spouse-Sig Other Phone No - [phone] Children Name(s) - Benji PRIOR DELIVERY HISTORY DEL DATE GEST LAB WT LB WT OZ TYPE ANES LABOR TX 10 Aug 16 39 6 7 0 Vag Epidural No ANTEPARTUM FLOW CHART VISIT GE RTC FU F F PA U U DATE WK MD WKS HT PN HR M SS BP ED WT PA GL D EF ST __ ____ ___ __ __ ___ __ __ __ ___ __ __ __ ___ __ 14 Oct 37 JMW 1 37 V + + 126/78 0 * 1+ - 4 75 -2 06 Oct 36 SHM 1 + 120/80 0 225 tr - 22 Sep 34 SHM 2 34 + + 106/64 0 223 tr - 08 Sep 32 SHM 2 + 130/84 sl 220 tr - 25 Aug 30 SHM 2 30 B + + -/ 102/78 o 221 - - 11 Sep 22 SHM 2 28 ? + + 120/76 0 218 tr - 14 Aug 18 SHM 4 25 + + 94/68 0 210 1+ - 10 Jul 13 SHM 4 19 + ? 120/70 0 204 tr ne 06 Jun 18 CM + 118/68 0 203 1+ ne 12 Jun 09 SHM 4 15 + ? 118/80 0 197 1+ 1+ 15 May 05 SHM on 110/68 0 188 06 May 04 SHM 1 + O 104/78 0 176 28 Sep 10 SHM / 183 2+ ne ANTEPARTUM NOTE(S): Nov 06 2021: ctx's, hip pain, pelvic pressure Oct 29 2021: uncomfortable and angry Oct 14 2021: photosensitivity? Sep 30 2021: Copy of blood sugars for review Sep 19 2021: see note Sep 05 2021: see note Aug 08 2021: 1 hr supplies and instructions given Jul 04 2021: Comp u/s today Jun 30 2021: sharp pain in groin radiating to back. Jun 06 2021: May 09 2021: feeling better Apr 30 2021: see note Apr 22 2021: COMPREHENSIVE ANTEPARTUM NOTE(S): Nov 06 2021: H taken to OB. tkg Nov 06 2021: Eve is here w/ SO for a pnv at 37/2. Good FM. No edema present. Ctx's and candace mccoy. Pt states she has had a few times where she contemplated going to L+D d/t ctx's. Pelvic pressure and back pain present. Denies concerns/ questions at this time. Desires cervix check. MK Oct 15 2021: Entry for 10/14/21: Reports graduate headache onset yesterda with photophobia and bright light shining, tunneling of vision, dizziness intermittently with right hand weakness and righ perioral numbess. To ER for eval. Tubal papers signed. Oct 14 2021: Eve is here for a pnv at 34/0. Good FM. No edema present. Pt reports that around 4 pm yesterday she started having issues with her eyes. Pt states it seemed like her eyes wouldn't adjust to the light and that everything seemed very bright, this lasted for 1 hr. Around 5 pm she began to have numbness and tingling in her mouth and R hand. She also started having trouble speaking the words she was Sep 30 2021: Eve is here for visit. She is overall doing well. Mild edema once in awhile. Reviewed FM, PTL, PROM. Encouraged Tdap. LMT Sep 19 2021: Reviewed importance of euglycemia. Blood sugars 60% at target. Advised no further soda, pop tarts or rice krispy treats to start. Discussed limiting carbs with meals, currently up to 4 servings at a time - encouraged to reduce to 1-2. Recommend knee and ankle support while sleeping for hips. Continue belt during day. Requests BTL again - will plan to schedule for 6-8w due to l Sep 19 2021: Eve is here for visit. She complains of severe hip pain. She is walking fine back to room. Copy of blood sugars for Dr MERINO review. Discussed option for PT and she will discuss further with Dr MERINO. LMT Asking what to take for sleep? Ok to use Melatonin? Advised to start with Unisom and if not helping will discuss further at next visit with Dr MERINO. LMT Sep 08 2021: Eve is here at 28 w 6 d for gestational diabetic teaching, including dietary, keeping a food/blood sugar log, and use of glucometer. She brought the glucometer that she picked up at her pharmacy, along with testing strips and extra lancets. Reviewed importance of checking her blood sugars and recording them, and that she needs to bring her blood sugar log with her to every visit for rev Sep 05 2021: Numerous complaints today. States hyperemesis is back. Taking Zofran and Reglan with relief. She has R side pain and ordered belly band but it is very uncomfortable. She is having bilateral calf pain does not feel like it is llike a charley horse. Sep 05 2021: Resumed Zofran 4mg tid 1-2 weeks ago, continues Reglan q6h with no emesis since starting Zofran. Will continue. ROS performed, on exam pain below right costal margin anterior and dorsally c/w nerve pain - pt reassured. She notes cannot work more than 4 hours due to worsening of pain associated with bending, lifting, twisting. Work note provided for 4h shifts. No leg tenderness, edema, knots or cor Aug 08 2021: Eve is here for a pnv we/ SO at 24/3. Good FM. No edema present at this time. Denies concerns/ questions. Would like a doctors note for work to approve 8 hr work shifts w/ no heavy lifting, states her job often makes her lift heavy and she is unable to do so. 1 hr GTT supplies and instructions given. MK Aug 08 2021: Work note provided, no lifting > 20lb. Discussed lifting body mechanics. PTL precautions. Zofran pump d/c'd. Doing well with po meds only as needed. Requests tubal sterilization. Jul 04 2021: Eve is here for visit. She relates that she now has pain in mid back also. Feels her groin pain is more likely round ligament pain. She is encouraged to try heat, massage, and can consider Chiropractor for back pain. Tylenol if needed, PT referral if persists. Also went to ER with negative findings. Much discussion about u/s and very excited today about how photogenic baby was. LMT Jul 04 2021: c/o skin sensitivity, soreness and pain at pump sites and pain with infusion. Requests to wean. Advised her to reach out to [facility] nurse to discuss strategy. I agree appropriate to wean at this time. Work note provided and pt relates plastic odors at work worsening her nausea over time - will continue reduced hours. [place], PTL precautions. Anatomay scan today wnl, EFW 88th%. ANTERIOR placen Jun 30 2021: Urine long dip completed in office. 70+ luek, 2+ protein, 7.5 ph, 3+ blood, SG-1.010. Urine Culture sent out. Jun 30 2021: 18/6w OB ACUTE. Reports right groin pain that started last week. She has been out of work since 06/25. States the pain is right where her leg meets her torso. Sharp. Occurs when she is standing and lying on her right side. Worsens as she stands longer. No fevers, no urinary symptoms, no bowel complaints, no fevers. Nausea/emesis is controlled. On exam nontender to palpation. No CVA tenderness. Poss Jun 06 2021: Urine dip- Leuk-1+, Nitrite- neg, Urobil-neg, Protein-1+, PH-6.5, Blood-0, SG-1.020, Ketones-+, Glucose-1+. Jun 06 2021: NOB paper work completed. Eve declined genetic and carrier screening. EPDS = 5. Genetic Screening form completed, with her SO having been born with Amblyopia and needing surgical correction; he also has ADHD, OCD, and ADD. AW May 09 2021: Eve is here for f/u from recent hospital stay. She was severely dehydrated and in patient management with IV hydration and medication changes. She is currently on Reglan q 6 which she is going well for her. She has not had anymore emesis. She has gained 12 lbs since 04/30. Keeping fluids down and able to eat small, frequent meals. Unable to give urine this am. LMT Gave urine after visit- Prot May 01 2021: TELEHEALTH NOB VISIT, 15 MINUTE DURATION. Eve is a 30 year old with an KERRIE of 11/25/2021, current GA is 10 w 3 d. She resides with her , and their 5 year old son, Benji. Her son was born by at [facility] [place]; past history updated. Eve plans to deliver at [facility] [place] with an epidural, and she is undecided about feeding method. She is currently admitted at [facility] [place] for severe NVP; Apr 30 2021: Eve is here for U/S and PNV. She is not able to keep anything down still. Active emesis here. [facility] is unable to start an IV. Only thing she keeps down is Sprite. Not wanting to go to ER but advised this really is not an option. IV needs started. She needs to have this done to prevent more serious complications from the severe dehydration. They only want something started as she has IV fluids a Apr 30 2021: Pt unable to void. Appears dry visually and c/o headache with photophobia. I advised her to go to ER for fluids and will eval for admission. Refusing to go to ER as she has already been there 3 times this and they always d/c her. She feels she needs admitted. I reviewed with her intention for admission, but again needs to go to ER for hydration and emphasized that she was previously advi Apr 22 2021: Eve is here with her for weight check at 10.6 weeks gestation. Continues to vomit multiple times daily- unable to hold down even any liquids. Oral Zofran causes N whether in pill form or dissolvable. Is using promethazine supp q 6 h unless asleep. Tries to sip fluid, waits, sips and vomits. Wt is 183# today. Voiding infrequently. Did void about 30 cc and long dip: Ketones 4+, protein Apr 02 2021: Pt here for MM apt. Pt is to start PNV. Pt was in the ER last night an=d she was dx with UTI and dehydration. She had IV fluids and was put on Cephexin. She feels a little better today but is just tired with not much of an appetite. WhatTo Expect Book given. She had spotting a couple days last week. UPT in office positive today. LMP 02/05/21. She is 8 wks. KERRIE by LMP 11/13/21. GR Apr 02 2021: as above. Reports severe nausea, vomiting starting 4 days ago with associated dehydration and had an ER visit last night with IV hydration, dx of UTI and started on Keflex. She was given Zofran odt and notes this worsens her nausea, requests regular Zofran. Had spotting x 2-3 days last week. Reports menses monthly and normal. She has no other complaints. Recently returned from [place] for honeymoon! No REVIEW OF SYSTEMS: GENERAL - Denies fever, or chills SKIN - Denies rash, new skin lesions, or change in moles EYES - Denies blurred vision, or change in visual acuity EARS - Denies ear pain, or difficulty hearing NOSE - Denies nasal congestion, discharge, or bleeding MOUTH - Denies sore throat, or difficulty swallowing NECK - Denies pain or swelling RESPIRATORY - Denies shortness of breath, cough, wheezing CARDIOVASCULAR - Denies palpitations, chest pain, orthopnea, PND, peripheral edema, syncope or claudication GASTROINTESTINAL - Denies nausea, vomiting, diarrhea, constipation, Denies abdominal pain, melena and or bright red blood GENITOURINARY - Denies dysuria, frequency of urination, urgency, or hesitancy MUSCULOSKELETAL - Denies joint or muscle pain, or back pain NEUROLOGICAL - Denies localized numbness, weakness, or tingling PSYCHIATRIC - Denies depression, anxiety, substance abuse or suicide attempts ENDOCRINE - Denies heat or cold intolerance, weight loss or gain, increasing thirst HEMATO-IMMUNOLOGIC - Denies easy bruising, bleeding, oral ulcerations or recurrent infections GENETICS SCREENING: Age 35+ years: No Thalassemia: No Neural Tube Defect: No Down Syndrome: No LITO-SACHS: No Sickle Cell Disease: No Hemophilia: No Musc. Dystrophy: No Cystic Fibrosis: No-declines screening Griffin Chorea: No Mental Retardation: No Fragile X: No Other genetic: No Other defects: No SABs/still births: No Drugs since LMP: No Comments: cousin with autism INFECTION HISTORY: High risk AIDS: No High risk Hepatitis: No Exposed to TB: No Exposed to Herpes: No Rash/viral illness since LMP: No History of STD: No Comments: +chlamydia MENSTRUAL HISTORY: *Menses Amount/Duration: 5-7 daysMenses Regularity: regularFrequency: monthlyMenarche (Age Onset): 13* PAST SUMMARY: PARITY: 1. Total Pregnancies............ 2 2. Full Term Pregnancies........ 1 3. Premature.................... 0 4. Abortions - Induced.......... 0 5. Abortions - Spontaneous...... 0 6. Ectopics..................... 0 7. Multiple Births.............. 0 8. Living Children.............. 1 PAST #1: Date of :.................. 03/04/16 Gestation Weeks:................ 39 Length of labor(hours):......... 6 Sex:............................ M Weight-lbs:............... 7 Weight-oz:................ 0 Type of Delivery:............... Vag Type of Anesthesia:............. Epidural Place of Delivery:.............. Mel Treatment of Labor?:.... No Comment: PHYSICAL EXAMINATION General Appearence: 31 yo female in no acute distress Vital Signs: AF, VSS Heart: RRR without rubs or gallops Lungs: CTA x 2 Breasts: deferred Abdomen: gravid Pelvis: Cervix: Presentation: cephalic Station: Fetus: Size: AGA Movement: present Heart: present Impression /Plan: 37 wks + 3 days intrauterine with non-reassuring FHTs. Plan AROM. Preparations in progress for delivery.
[2021-11-08 01:46] LABS: Bedside Glucose 81 mg/dL (74-106)
[2021-11-08] MEDS: Lactated Ringers 500 ML 999 ML IV ×2 (01:58→06:22)
[2021-11-08] MEDS: fentaNYL-bupivacaine (epidural) 100 ML BAG EPIDURAL (03:26)
[2021-11-08 04:16] LABS: Bedside Glucose 78 mg/dL (74-106)
[2021-11-08] MEDS: Amnioinfusion- 0.9% NS 1,000 ML IV.SOLN. 1000 ML INTRA-UTER (05:04)
[2021-11-08 06:06] LABS: Bedside Glucose 73 mg/dL (74-106)
[2021-11-08 06:51] LABS: Bedside Glucose 86 mg/dL (74-106)
[2021-11-08] MEDS: Oxytocin 30 units/NS 500 ml 30 UNITS/500 ML IV.SOLN 334 UNITS IV (08:37)
--- NOTE | 2021-11-08 08:47 | EX.PCM.OBRPT ---
Maternal Data Information KERRIE Calculator Estimated Delivery Date Method Current WG Current Estimate 11/25/21 Ultrasound #1 37w 4d Vaginal Delivery Maternal Presentation Maternal Presentation: Medically Indicated Induction (Nonreassuring Heart Tones, IUP) Type of Induction: Pitocin and Amniotomy Operative Information Date of Procedure: 11/08/21 Pre-Operative Diagnosis: Nonreassuring Heart Tones, IUP Post-Operative Diagnosis: Nonreassuring Heart Tones, IUP Type of Anesthesia: Epidural Estimated Blood Loss: 250 cc Fluids Replaced: Crystalloid Findings Description of Procedure: Spontaneous vaginal delivery of a viable female infant with Apgars of 9/9 from an occiput anterior presentation with clear amniotic fluid and normal three-vessel placenta. Cord around the neck x1 tight. No episiotomy. First-degree midline laceration repaired with 3-0 Rapide suture under epidural. Sponges okay. Delivery physician: Mc Enriquez MD. Presentation: Vertex Amniotic Membrane Rupture Type: Artificial Amniotic Fluid Description: Clear Placental Delivery Description: Spontaneous Placenta Disposition: [facility] Cord Vessel Description: 3 Vessels Cord Entanglement: Around neck x 1, tight A Gender: Female (1 minute): 9 (5 minute): 9 Post Vaginal Delivery Medications Given After Delivery: IV Pitocin Episiotomy Description: None Laceration: Midline and 1st degree Complication Complications: None
[2021-11-08 10:06] LABS: Bedside Glucose 88 mg/dL (74-106)
[2021-11-08 10:06] LABS: Bedside Glucose 137 mg/dL (74-106)
[2021-11-08] MEDS: Acyclovir 200 MG Capsule 400 MG PO ×2 (10:59→22:18)
[2021-11-08] MEDS: 0.9% Saline Lock 10 ML Syringe IV (11:03)
[2021-11-08] MEDS: Benzocaine/Lanolin/Aloe Vera 1 SPRAY EACH TOPICAL (15:38)
[2021-11-08] MEDS: Ibuprofen 600 MG Tablet PO (18:52)
--- NOTE | 2021-11-08 19:52 | CM.ED ---
SW Note SW met with patient and fob in their room. Mother was holding the nb and appeared to be appropriately bonding with the nb. FOB also appeared to be very appropriately involved with caring for the nb. JOHNNIE Bloom said that patient is doing well and she has no concerns. Referral Source: Records stated history of past drug use Mom: Anayeli PNC: Norah Dunne Control: Planning for tubal Baby: Tamara Apgars: 04/03 Weight 3440 grams PCP: Lon Bottle Feeding MOB's other children: Son age 5 House: Patient resides in a house with the fob and 2 children Transportation: Patient reports no issues with transportation. Supplies: Patient reports that they have all supplies including the crib, clothes and supplies. Patient reports that the bassinet is ordered but needs to be delivered. Supports: Patient reports that her supports are her , family and friends. Patient said that friends reside locally. Education Level: Patient reports no learning issues. Patient graduated high school and had some college. Employment: Patient was employed by [employer] but is planning not to return to work there. Patient said she plans to return to work but her Nathaniel said our family has business so we are hoping she can work there or close to home. Agency Involvement: Patient reports she receives [employer] an food stamps. Patient plans to enroll on WIC. SW offered to enroll patient on WIC and fady's family agree to allow this blog writer to enroll nb on WIC. FOB: Nathaniel Time Together: 7 years Involve at : Yes Employment: Patient is self employed working on cars Patient has no other children beside their 2 children FOB denied any mental health/AOD or domestic violence history Patient denied any history of anxiety, depression or pot depression. Patient and fob were educated on Post Depression, Shaken Baby Syndrome and Safe Sleeping Patient reports she does not drink when she is . Patient reports that she drinks socially when NOT . Patient said that she last smoked marijuana 6 years ago. Patient said that she used marijuana prior to her knowledge that she was . Patient said that she just stopped using marijuana. Patient reports she smokes cigarettes but is trying to stop. FOB reports that they do not smoke in the presence of the children. SW educated them on ensuring that a responsible adult was with the child when they were outside smoking. SW provided resources on PPD SW made referral to WIC. No other SW needs at this time Plan: Home with chel RON
--- NOTE | 2021-11-08 20:25 | CM.ED ---
EVE DEAN Female : 1990 [facility]# [id number] 11/08/21 19:52 - Case Management - ED by Zehra Roque Num: [id number] : 1990 Patient Age: 31 SW Note SW met with patient and fob in their room. Mother was holding the nb and appeared to be appropriately bonding with the nb. FOB also appeared to be very appropriately involved with caring for the nb. JOHNNIE Bloom said that patient is doing well and she has no concerns. Referral Source: Records stated history of past drug use Mom: Eve PNC: Norah Dunne Control: Planning for tubal Baby: Tamara Apgars: 04/03 Weight 3440 grams PCP: Lon Bottle Feeding MOB's other children: Son age 5 House: Patient resides in a house with the fob and 2 children Transportation: Patient reports no issues with transportation. Supplies: Patient reports that they have all supplies including the crib, clothes and supplies. Patient reports that the bassinet is ordered but needs to be delivered. Supports: Patient reports that her supports are her , family and friends. Patient said that friends reside locally. Education Level: Patient reports no learning issues. Patient graduated high school and had some college. Employment: Patient was employed by [employer] but is planning not to return to work there. Patient said she plans to return to work but her Nathaniel said our family has business so we are hoping she can work there or close to home. Agency Involvement: Patient reports she receives [employer] an food stamps. Patient plans to enroll on WIC. SW offered to enroll patient on WIC and fady's family agree to allow this life underwriter to enroll nb on WIC. FOB: Nathaniel Time Together: 7 years Involve at : Yes Employment: Patient is self employed working on cars Patient has no other children beside their 2 children FOB denied any mental health/AOD or domestic violence history Patient denied any history of anxiety, depression or pot depression. Patient and fob were educated on Post Depression, Shaken Baby Syndrome and Safe Sleeping Patient reports she does not drink when she is . Patient reports that she drinks socially when NOT . Patient said that she last smoked marijuana 6 years ago. Patient said that she used marijuana prior to her knowledge that she was . Patient said that she just stopped using marijuana. Patient reports she smokes cigarettes but is trying to stop. FOB reports that they do not smoke in the presence of the children. SW educated them on ensuring that a responsible adult was with the child when they were outside smoking. SW provided resources on PPD SW made referral to WIC. Of note, patient tox screen prenatally was negative. Patient tox screen was not completed. No other SW needs at this time Plan: Home with chel RON Initialized on 11/08/21 19:52 - END OF NOTE
[2021-11-08] MEDS: Acetaminophen 500 MG Tablet 1000 MG PO (23:31)
[2021-11-09 04:29] VITALS: BP 123/62; PULSE 81; RESP 16; TEMP 36.6
[2021-11-09 06:25] LABS: Bedside Glucose 60 mg/dL (74-106)
[2021-11-09 06:56] LABS: Bedside Glucose 95 mg/dL (74-106)
[2021-11-09 07:11] LABS: Bedside Glucose 114 mg/dL (74-106)
--- NOTE | 2021-11-09 07:33 | NURSING ---
Pts fasting blood sugar this morning was 60. Gave 4oz apple juice and imelda crackers. Pt not symptomatic. Repeated blood sugar at 0648-95. Repeated blood sugar at 0705-114.
[2021-11-09 08:15] VITALS: BP 133/86; PULSE 99; RESP 16; TEMP 37.2; O2SAT 99
[2021-11-09] MEDS: Ibuprofen 600 MG Tablet PO (08:23)
--- NOTE | 2021-11-09 08:49 | PCM.PN.OB ---
Subjective Subjective Patient without complaints. Bottlefeeding going well. Wants to go home today if baby is able to go. Objective Data Objective Data Vital Signs: Vital Signs Temp Pulse Resp BP Pulse Ox 98.9 F 99 16 133/86 H 99 11/09/21 08:15 11/09/21 08:15 11/09/21 08:15 11/09/21 08:15 11/09/21 08:15 Oxygen Delivery Method Room Air Weight: 226 lb Body Mass Index (BMI) 38.7 Intake & Output: Intake and Output for Last 24 Hours 11/07/21 11/08/21 11/09/21 23:59 23:59 23:59 Intake Total 3459.87 / 3459.87 Output Total 900 / 900 Balance 2559.87 / 2559.87 Lab / Micro Data Result Diagrams: 11/07/21 23:45 Labs: Laboratory Results - last 24 hr 11/08/21 07:40: POC Glucose 88 11/08/21 09:47: POC Glucose 137 H 11/09/21 06:21: POC Glucose 60 L 11/09/21 06:48: POC Glucose 95 11/09/21 07:05: POC Glucose 114 H Micro: Microbiology 11/07/21 23:45 Nasal Secretion SARS-CoV-2 Antigen (Rapid) - Final Assessment & Plan (1) Spontaneous vaginal delivery: PLAN: Doing well day #1 status post routine spontaneous vaginal delivery. Will discharge to home with routine instructions if baby is able to go home today.
--- NOTE | 2021-11-09 08:51 | PCM.DC ---
Discharge Instructions Diet Discharge Diet: No restrictions Activity Discharge Activity: May Drive (In 1 to 2 days if not taking narcotic pain medication), May Shower and May Take a Tub Bath May resume sexual activity in: 4-6 weeks Additional Activity Instructions:: Nothing in the vagina for 4-6 weeks. You may return to work/school in 6 weeks. Dressing / Incision Call your doctor if you observe: Fever of 101 or Higher, Inability to urinate, Inability to have a bowel movement and Using more than 1 pad per hour Follow Up Care Please Follow Up With: Amanda Quintana MD When: Call [phone] to make an appointment with your doctor in 6 weeks. Test Results: Test results from this visit will be discussed in further detail at your follow-up appointment, if applicable. Discharge Plan Admission Admit Date/Time: 11/07/21 23:25 Primary Reason for Your Visit: Vaginal Delivery Attending Provider: Mc Enriquez Primary Care Provider: Care Physician,Molly Primary Discharge Orders/Prescriptions Prescriptions: No Action ondansetron HCl 4 mg Tablet 4 mg PO Q8H RF: 0 valacyclovir 1 gram tablet 1,000 mg PO DAILY RF: 0 metoclopramide HCl 5 mg tablet 5 mg PO Q6H RF: 0 Referrals / Follow Up: Care Physician,No Primary [Primary Care Provider] - Disposition Disposition (needs filled in before D/C Order can be placed): Home, Self Care
[2021-11-09] MEDS: Acyclovir 200 MG Capsule 400 MG PO (09:03)
== END 2021-11-09 11:25 | disposition home or self-care (01) | DRG 560 ==
LOC: WPOUT 23:26 → WP 23:26
PROVIDERS: Admitting Provider Obstetrics & Gynecology; Referring Provider Obstetrics & Gynecology; Visit Provider Obstetrics & Gynecology
DX: O76 Abnormality in fetal heart rate and rhythm complicating labor and delivery (principal); Z37.0 Single live birth; O69.1XX0 Labor and delivery complicated by cord around neck, with compression, not applicable or unspecified; O70.0 First degree perineal laceration during delivery; Z87.891 Personal history of nicotine dependence; Z3A.37 37 weeks gestation of pregnancy
CPT/HCPCS: 59025; 59050; 82962; 85025; 86850; 86900; 86901; 87081; 87426; 87653; 99218; J7030; J7120; A4216; G0378

== ENCOUNTER 2021-12-11 07:56 | Day surgery (SDC) | payer MEDICAID, SELFPAY ==
[2021-12-09 15:18] LABS: Hematocrit 38.2 % (37-47); Hemoglobin 11.8 g/dL (12.0-15.0); Mean Corp Hgb Conc 30.9 g/dL (32-36); Mean Corpuscular Hgb 27.2 pg (27.0-32.0); Mean Platelet Vol. 9.1 fl (6.2-12.0); Platelet Count 366 K/mm3 (150-450); RBC Distribution Width CV 15.5 % (11.6-14.6); RBC Distribution Width SD 50.2 fl (35.1-43.9); Red Blood Count 4.34 M/mm3 (4.2-5.4); White Blood Count 9.4 K/mm3 (4.4-11.0)
[2021-12-09 15:26] LABS: Prothrombin Time (Protime)PT. 13.3 SECONDS (11.7-14.9)
[2021-12-09 15:28] LABS: Partial Thromboplast Time 30.9 Seconds (24.1-36.2)
[2021-12-11] VITALS (7 sets, daily range): BP systolic 102–143; BP diastolic 61–112; PULSE 56–91; RESP 16; TEMP 36.3–37.1; O2SAT 93–100; BMI 33.8
--- NOTE | 2021-12-11 05:40 | PCM.HP.BLA ---
History and Physical Date of Admission: 12/11/21 Surgical History and Physical Date: 12/09/2021 Name: EVE HULL Age: 31 Date of : 1990 Eve Hull, a 31 year old female 2 0 0 0 2, presents for Laparoscopic bilateral salpingectomy on December 11, 2021. She desires permanent sterilization. She is s/p uncomplicated 11/10/21. MEDICATIONS HISTORY: Current medications prescribed by our practice are: 1. cephalexin 500 mg tablet, 1 tab four times daily for 7 days 2. cephalexin 500 mg tablet, 1 tab four times daily 3. Reglan 10 mg tablet, One pill by mouth every eight hours 4. Reglan 5 mg tablet, 1 tab po q6h prn nausea 5. Vagicaine 5 %-2 % topical cream, as needed 6. valacyclovir 1 gram tablet, One tab POI twice daily for 10 days 7. Valtrex 1 gram tablet, 1 tab daily 8. 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 Illnesses - none Accidents - none Hospitalizations - Childbirth Review of Systems: GENERAL - Denies fever, or chills SKIN - Denies skin changes EYES - Denies visual changes EARS - Denies difficulty hearing NOSE - Denies nasal congestion or bleeding MOUTH - Denies sore throat or difficulty swallowing NECK - Denies pain or swelling RESPIRATORY - Denies shortness of breath or wheezing CARDIOVASCULAR - Denies palpitations or chest pain GASTROINTESTINAL - Denies nausea, vomiting, diarrhea, constipation GENITOURINARY - Denies dysuria, frequency of urination, incontinence of urine MUSCULOSKELETAL - Denies joint or muscle pain NEUROLOGICAL - Denies localized numbness or weakness PSYCHIATRIC - Denies depression or anxiety ENDOCRINE - Denies heat or cold intolerance, weight loss or gain HEMATO-IMMUNOLOGIC - Denies excesive bleeding with cuts SOCIAL HISTORY: Alcohol Use - denies drinking Smoking - used to smoke but quit Diet - no special diet Lifestyle - Exercise - none Seat Belt Use - most of the time Employer - [employer] Job Description - Mgmt Specialist Illicit Drug Use - used street drugs before but quit Sexual Activity - single sexual partner Residence - lives with Place of - [place], [place] Hours Worked - 30-40 hr/wk Spouse-Sig Other Name - Chris Hull Spouse-Sig Other Occupation - Dairy Department Manager Spouse-Sig Other Phone No - [phone] Children Name(s) - Vincent Leblanc Control - wants tubal FAMILY HISTORY: MENSTRUAL HISTORY: LMP Known?- PostpartumAmount/Duration - 5-7 days, Regularity - regular, Frequency - monthly days, LMP - 02/05/21, Age Onset Menarche - 15 PAST PREGNANCIES: Total Pregnancies - 2; Full Term Pregnancies - 2; Premature - 0; Abortions, Induced - 0; Abortions, Spontaneous - 0; Ectopics - 0; Multiple Births - 0; Living Children - 2 SURGICAL HISTORY: 1. none ; - PHYSICAL EXAM BP- 120/82 Sitting, Right arm, regular cuff Temp- 98.0 Taken Orally Weight- 195.71657 lbs Height- 65 inch BMI:[id number] CONSTITUTIONAL - NAD, well nourished, and well developed SKIN - No rash, lesions, or ulcers HEENT - Normocephalic, PERRLA, EOMI LUNGS - CTA x2 without wheezes, crackles or rales CARDIAC - Regular rate and rhythm without rubs, murmurs, or gallops ABDOMEN - Without hepatosplenomegaly, distention, masses, rebound, or guarding; normal bowel sounds; no hernias EXTREMITIES - No edema or calf tenderness NEUROLOGICAL - normal gait, normal balance, normal motor PSYCHIATRIC - A and O to time, place, person, mood and affect Medication(s) Stopped/Reason: cephalexin 500 mg capsule - Other, Zofran 4 mg tablet - Other, promethazine 25 mg rectal suppository - Other, Reglan 10 mg tablet - Other, cephalexin 500 mg tablet - Other, Reglan 5 mg tablet - Other and cephalexin 500 mg tablet - Other Assessment & Plan Assessment/Plan (1) Encounter for sterilization: PLAN: Consents signed and reviewed [facility] Medical History (Updated 12/11/21 @ 05:[address] Amanda Dunne MD) Alcohol use Anemia Back pain Gastric reflux Genital herpes affecting Gestational diabetes Hyperemesis IBS (irritable bowel syndrome) Leg cramps Marijuana use Migraine headache Piercing Smoker Spontaneous vaginal delivery Wears glasses Surgical History No history of previous surgery Social History household members: spouse and children Smoking Status: Current every day smoker tobacco type: cigarettes alcohol intake: former substance use type: does not use History 2 Elective abortions Hx Para 1 Spontaneous abortions Hx # Term Pregnancies 1 Ectopic pregnancies Hx # Pregnancies Multiple births # of living children 1
[2021-12-11 08:28] LABS: Internal QC Validated? YES +Cl - CLEAR BKGD
[2021-12-11 08:29] LABS: Pregnancy, Urine Negative Negative
[2021-12-11] MEDS: Lactated Ringers 1,000 ML 15 ML IV (08:37)
--- NOTE | 2021-12-11 09:45 | FALS_PTH ---
PATIENT: EV[place]ULL [place] [facility] [id number] AGE/SX: 31/F ROOM: RE12/11/[address]: Dr. Amanda Dunne MD : 1990 BED: DIS: 12/11/2021 SPEC #: [id number] RECD: 12/11/21 14:12 STATUS: TAMANNA REJuan #: [id number] JESSEE: 12/11/21 09:[address]: Amanda Quintana DEPT: SURGICAL PATHOLOGY RECD BY: Zachary Liu ENTERED: 12/12/21 07:56 SP TYPE: FALL TUBES OTHR DR: Molly Primary Care Phys Tissues: Fallopian tube Procedures: Surgery Specimen Level II Surgery Specimen Level IV HEADER OPERATION: Laparoscopic salpingectomy PRE-OP DIAGNOSIS: Sterilization TISSUE SUBMITTED: Bilateral fallopian tubes MICROSCOPIC DIAGNOSIS Right and left fallopian tubes, bilateral salpingectomies: Complete cross-sections of fallopian tubes with benign paratubal cysts. AM:jazmin 12/15/2021 MICROSCOPIC DESCRIPTION Slides are reviewed. GROSS DESCRIPTION Received in fixative is one container labeled with the patient's name and designated bilateral fallopian tubes. The specimen consists of two fallopian tubes with an average length of 6.8 cm and has an average diameter of 0.7 cm. The fallopian tubes are not identified as right of left. One fallopian tube contains paratubal cysts adjacent to the fimbrial end. The cysts measure approximately 1 cm in greatest dimension. Both fallopian tubes have normal fimbriated ends. Mediator sections are submitted in two cassettes as follows: 1 - fallopian tube with cysts, 2 - fallopian tube without cysts. / AM:jazmin 12/12/2021 TC:5 CPT: 18780, 13813
--- NOTE | 2021-12-11 10:57 | PCM.OPRPT ---
Problems Associated Problem List Diagnoses (1) Encounter for sterilization: (2) Endometriosis determined by laparoscopy: Report of Operation Date of Procedure: 12/11/21 Pre-Operative Diagnosis: 1. Sterilization request 2. Multiparity Post-Operative Diagnosis: 1. Sterilization request 2. Multiparity 3. Endometriosis Surgery/Procedure Performed:: 1. Diagnostic laparoscopy 2. Bilateral salpingectomy Description of Surgical Findings:: Normal uterus, tubes and ovaries. Endometriotic implants at the sigmoid peritoneum/left abdominal side wall, left uterosacral ligament, posterior and anterior culdesac endometriosis and right uterosacral endometriosis implants with minimal scarring of the left ovary to the ovarian fossa. Surgeon: Amanda Quintana regional account manager: Valeria Beavers Type of Anesthesia: General Anesthesiologist: Valentín Larios Specimen's removed: bilateral tubes Estimated Blood Loss (mL): 5 Fluids Replaced: 800 ml Description of Procedure: Indications: 31-year-old 2 para 2-0-0-2 presents for scheduled laparoscopic bilateral salpingectomy for sterilization procedure and prophylaxis. She was counseled regarding procedural risks, benefits, indications as well as alternative contraceptives and opted to proceed. Procedure: The patient was brought to the operating room and sinus performed. She was induced under general anesthesia and intubated. She was repositioned into dorsal lithotomy and examination under anesthesia was performed. Her arms were tucked at her sides. Straight catheterization of the bladder was performed. The perineum and abdomen were prepped and draped in sterile fashion. Patient was placed into high lithotomy and a weighted speculum placed vaginally the cervix grasped the anterior cervical lip using a single-tooth tenaculum. The uterus was sounded to 8 cm. The ZUMI uterine manipulator was placed and secured and the tenaculum was removed. The patient was placed into low lithotomy and attention turned to the abdomen. An inferior umbilical incision was made using a scalpel following injection of half percent Marcaine. The Veress needle was placed with unsuccessful hanging drop x3. This I proceeded with laparoscopic entry via 5 mm port which confirmed entry into the abdominal cavity. The abdomen was insufflated to 15 mmHg. The abdomen and pelvis were inspected demonstrating diffuse moderate pelvic endometriosis. Marcaine was placed under transillumination in the right and left lower quadrants followed by placement of 2 additional 5 mm ports. The left tube fimbria was identified and isolated. The left mesosalpinx was electrocoagulated and transected using the Enseal device to the level of the uterine cornua with salpingectomy performed. The tube was removed via the 5 mm port. In similar fashion right salpingectomy was also performed. There was excellent hemostasis. The procedure was complete. The abdomen was desufflated and ports removed. The skin was closed by the MANAGED CARE SPECIALIST under my supervision using 4-0 Monocryl. Steri-Strips and OpSite dressing were placed over the incisions. The patient was repositioned to dorsal supine, awakened and extubated. She will be transferred to the recovery room. Sponge and needle counts were correct x2. Complications None Admit VTE Documentation VTE Present on Admission: No VTE Mechan Device Prophylaxis: SCD's VTE Pharm Prophylaxis ordered?: No
[2021-12-11] MEDS: Bupivacaine Mpf 0.5% 30 ML VIAL (11:00)
--- NOTE | 2021-12-11 11:06 | PCM.DC ---
Discharge Instructions Diet Discharge Diet: No restrictions Activity Discharge Activity: Return to Normal Activity May resume sexual activity in: - (2-4 weeks) Lifting Restrictions: 10 lb for 2 weeks Dressing / Incision Call your doctor if your incision/area has: Continuous Slow Oozing, Sudden Increased Bleeding, Increased Pain/ Swelling, Increased Redness, Foul Smelling Discharge and Swelling at the incision site Call your doctor if you observe: Fever of 101 or Higher, Inability to urinate, Inability to have a bowel movement, Shortness of breath, Chest pain, Calf discomfort and Uncontrolled pain Remove Dressing in: 2 days Cleanse incision/area with: Soap & Water Follow Up Care Please Follow Up With: Amanda Quintana MD When: 1-2 weeks Test Results: Test results from this visit will be discussed in further detail at your follow-up appointment, if applicable. Discharge Plan Admission Primary Reason for Your Visit: Tube removal Attending Provider: Amanda Quintana Primary Care Provider: Care Physician,No Primary Instructions Patient Instructions: ED Endometriosis Discharge Orders/Prescriptions Prescriptions: New oxycodone 5 mg capsule 5 mg PO Q6H PRN (Reason: pain) 5 Days Qty: 20 RF: 0 ibuprofen 800 mg tablet 800 mg PO Q8H PRN (Reason: pain) Qty: 30 RF: 0 Referrals / Follow Up: Care Physician,No Primary [Primary Care Provider] - Disposition Disposition (needs filled in before D/C Order can be placed): Home, Self Care
== END 2021-12-11 13:25 | disposition home or self-care (01) ==
LOC: SDC 07:56 → AC 07:58
PROVIDERS: Referring Provider Obstetrics & Gynecology; Visit Provider Obstetrics & Gynecology
PROC: (CPT 58661; principal; 2021-12-11 09:30)
DX: Z30.2 Encounter for sterilization (principal); N83.8 Other noninflammatory disorders of ovary, fallopian tube and broad ligament; N80.9 Endometriosis, unspecified; Z20.822 Contact with and (suspected) exposure to COVID-19; K21.9 Gastro-esophageal reflux disease without esophagitis; K58.9 Irritable bowel syndrome, unspecified; F17.210 Nicotine dependence, cigarettes, uncomplicated
CPT/HCPCS: 58661; 00840; 36415; 81025; 85027; 85610; 85730; 86850; 86900; 86901; 87811; 88302; 88305; J7120; C1760; J2405

== ENCOUNTER → 2022-01-15 | Outpatient (CLI) | payer MEDICAID, SELFPAY ==
--- NOTE | 2022-01-15 13:46 | MRI_ITS ---
EXAM: MR PELVIS WITHOUT AND WITH INTRAVENOUS CONTRAST CLINICAL INDICATION: ENDOMETREOSIS -- GEL PROTOCOL ASSIGN TO DR LOUIS TECHNIQUE: Multiplanar and multisequence MR images of the pelvis without and with intravenous contrast. This report was created using [employer] report Breather technology. CONTRAST: IV DOTAREM 18 CC COMPARISON: None. FINDINGS: APPENDIX: No evidence of acute appendicitis. INTRAPERITONEAL SPACE: Unremarkable. No ascites or other fluid collection. BLADDER: Unremarkable. REPRODUCTIVE: There is no evidence for deep pelvic endometriosis. Of the visualized right and left ovary, there is no evidence for superficial endometriosis. However, the axial images do not cover the entire ovaries. The patients ovaries are rather high in the pelvis/ low in the abdomen and not completely in the field of view on the axial sequences. BONES/JOINTS: Unremarkable. No suspicious lytic or blastic abnormality. SOFT TISSUES: Unremarkable. No pelvic wall hernia. LYMPH NODES: Unremarkable. No enlarged lymph nodes. MRI/Pelvis W/WO Contrast IMPRESSION: 1. There is no evidence for deep pelvic endometriosis. 2. Of the visualized right and left ovary, there is no evidence for superficial endometriosis. However, the axial images do not cover the entire ovaries. The patients ovaries are rather high in the pelvis/ low in the abdomen and not completely in the field of view on the axial sequences. Electronically Signed: Reynold Del Cid MD at 21:16 EDT ,
== END | disposition home or self-care (01) ==
PROVIDERS: Referring Provider Obstetrics & Gynecology; Visit Provider Obstetrics & Gynecology
DX: N80.3 Endometriosis of pelvic peritoneum (principal)
CPT/HCPCS: 72197; A9575

== ENCOUNTER 2023-03-02 11:23 | Emergency (ER) | payer MEDICAID, SELFPAY ==
[2023-03-02 11:24] VITALS: BP 117/85; PULSE 69; RESP 16; TEMP 36.2; O2SAT 99; BMI 33.7
--- NOTE | 2023-03-02 11:36 | EX.ED.VIS.HA ---
HPI History of Present Illness Chief Complaint: Headache Detail of Chief Complaint: Migraine headache Informant: patient and spouse/S.O. Narrative Narrative: Patient presents to the emergency department with complaint of a headache that she has had off-and-on for about 2 weeks. Patient states that she was seen 2 weeks ago at urgent care and received a shot. Patient started with this headache 3 days ago and has been relatively continuous despite taking Excedrin and Tylenol. Describes the pain as behind her eyes. She complains of photophobia. Yesterday she had nausea and vomiting x 3. Headache is typical of her migraines. She is currently on her menstrual period and that typically exacerbates them. Patient denies falls or head injuries. She denies recent illness. [facility] Medical History (Updated 03/02/23 @ 12:[address] Bettei Lowry DO) Alcohol use Anemia Back pain Gastric reflux Genital herpes affecting Gestational diabetes Hyperemesis IBS (irritable bowel syndrome) Leg cramps Marijuana use Migraine headache Piercing Smoker Spontaneous vaginal delivery Wears glasses Home Medications ibuprofen 800 mg tablet 800 mg PO Q8H PRN pain #30 tabs 12/11/21 [Rx Last Taken Unknown] oxycodone 5 mg capsule 5 mg PO Q6H PRN pain 5 days #20 caps 12/11/21 [Rx Last Taken Unknown] Allergy/AdvReac Type Severity Reaction Status Date / Time hydrocodone AdvReac Vomiting Verified 03/02/23 11:24 morphine AdvReac Hives Verified 03/02/23 11:24 Surgical History No history of previous surgery Social History household members: spouse and children Smoking Status: Current every day smoker tobacco type: cigarettes alcohol intake: former substance use type: does not use ROS ROS ED Review of Systems ROS Unobtainable: other Constitutional Constitutional ED: Reports lethargy; Denies chills, fever(s), sweats or weight loss Eyes Eyes: Denies blurry vision, change in vision or diplopia ENT ENT ED: Denies rhinorrhea or sore throat Cardiovascular Cardiovascular: Denies chest pain, orthopnea or racing heartbeat Respiratory/Chest Respiratory/Chest: Denies cough, dyspnea, dyspnea on exertion, orthopnea or sputum Gastrointestinal Gastrointestinal: Reports nausea and vomiting; Denies abdominal pain or diarrhea Genitourinary Genitourinary ED: Denies dysuria, hematuria or urinary frequency Musculoskeletal Musculoskeletal: Denies arthralgias, back pain, myalgias or neck pain Integumentary Denies abscess, Abrasions or rash Neurologic Neurologic: Reports headache(s); Denies weakness Psychiatric Psychiatric: Denies anxiety, depression or suicidal thoughts Endocrine Endocrinology: Denies polydipsia, polyphagia or polyuria Hematologic/Lymphatic Hematologic/Lymphatic: Denies easy bleeding, easy bruising or lymphadenopathy Allergic/Immunologic Allergic/Immunologic ED: Denies mouth swelling, tongue swelling or urticaria EXAM Physical Exam Const Vital Signs: 03/02/23 11:24 Temperature 97.1 F L Temperature Source Temporal Pulse Rate 69 Respiratory Rate 16 Blood Pressure 117/85 H Blood Pressure Mean 95 Pulse Ox 99 Oxygen Delivery Method Room Air Positive well nourished and well developed General Appearance ED: well developed and NAD HEENT Reports TM's clear and moist mucous membranes normocephalic and atraumatic; Negative for trauma or tenderness Tympanic Membrane ED: Yes TM's clear Eyes PERRL and EOMs intact bilaterally General Eye ED: Negative for pale conjunctiva or scleral icterus Neck no lymphadenopathy, supple and no JVD General: Negative for tenderness Chest Wall inspection of chest normal and palpation of chest normal Chest: Negative for tenderness Resp normal respiratory effort and clear to auscultation bilaterally Effort and Inspection: Negative for respiratory distress or pain with movement Auscultation: Negative for rhonchi, wheezes or diminished lung sounds Cardio regular rate, regular rhythm, S1 normal heart sound, S2 normal heart sound and no murmurs Peripheral Pulses: pulses 2+ throughout GI normal to inspection, nondistended, normoactive bowel sounds, soft to palpation, non-tender, non-distended and no masses Back/Spine no CVA tenderness and no thoracic nor lumbar tenderness Extremity normal to inspection General Extremety ED: Negative for edema General Extremity: Negative for edema Neuro oriented x3, CN's II-XII intact bilaterally, no sensory deficits noted and gait normal Neuro Narrative: Finger-nose and heel sal[place] testing within normal limits, negative Romberg, negative pronator drift, fundi benign Sensorium / Orientation: awake, alert, oriented to person, oriented to place and oriented to time Motor Exam: strength 5/5 throughout and strength abnormal Psych mental status grossly normal Skin no rashes or lesions noted and no wounds MDM MDM MDM Narrative Medical decision making narrative: Patient presents with a headache typical of her migraines. She had an IV line established and was given Reglan, Benadryl, Toradol and a liter normal same fluid bolus. On repeat examination her headache is almost resolved and rates it a 2 out of 10. Patient will be discharged to home and will be given a referral to neurology for follow-up. Patient advised to return if worsening headache, difficulty with balance or speech or condition should worsen anyway. Discharge Plan Triage Chief Complaint: Headache ED Provider: Bettie Lowry Dx/Rx/DC Orders Clinical Impression: Migraine Instructions: ED, Migraine (Classical) Prescriptions: No Action oxycodone 5 mg capsule 5 mg PO Q6H PRN (Reason: pain) 5 Days Qty: 20 0RF ibuprofen 800 mg tablet 800 mg PO Q8H PRN (Reason: pain) Qty: 30 0RF Primary Care Provider: Care Physician,No Primary Referrals: Trevor Schwartz MD [Non-Staff -Ordering Privileges] - 3-5 Days Care Physician,No Primary [Primary Care Provider] - Disposition Disposition: Home, Self Care Discharge Date/Time: 03/02/23 12:49
[2023-03-02] MEDS: 0.9% Normal Saline 1,000 ML 1000 ML IV (11:46)
[2023-03-02] MEDS: DiphenhydrAMINE 50 MG/ML Syringe 25 MG IV (11:47)
[2023-03-02] MEDS: Ketorolac 30 MG/ML Syringe IV (11:48)
[2023-03-02] MEDS: dexAMETHasone 10 MG/ML Vial IV (11:49)
[2023-03-02] MEDS: Metoclopramide 10 MG/2 ML Vial IV (11:50)
== END 2023-03-02 12:49 | disposition home or self-care (01) ==
PROVIDERS: Emergency Provider Emergency Medicine; Visit Provider Emergency Medicine
DX: G43.909 Migraine, unspecified, not intractable, without status migrainosus (principal); F17.210 Nicotine dependence, cigarettes, uncomplicated
CPT/HCPCS: 96361; 96374; 96375; 99283; J7030; A4216

== ENCOUNTER → 2023-03-09 | Outpatient (CLI) | payer MEDICAID, SELFPAY ==
[2023-03-09 16:34] LABS: Absolute Neutrophil Count 5.8 X10^3/uL (2.0-7.7); Basophil# 0.05 X10^3/uL; Basophil% 0.5 % (0-1); Eosinophil# 0.23 X10^3/uL; Eosinophils% 2.2 % (0-5); Hematocrit 40.9 % (37-47); Hemoglobin 12.8 g/dL (12.0-15.0); Lymphocyte % 34.8 % (19-41); Mean Corp Hgb Conc 31.3 g/dL (32-36); Mean Corpuscular Hgb 28.2 pg (27.0-32.0); Mean Corpuscular Volume 90.1 fL (81-99); Mean Platelet Vol. 8.9 fl (6.2-12.0); Monocyte# 0.63 X10^3/uL; Monocyte% 6.1 % (0-10); NRBC Flagged by Analyzer 0 % (0-5); Neutrophil # 5.79 X10^3/uL (2.7-7.7); Neutrophil % 56.1 % (47-70); Platelet Count 310 K/mm3 (150-450); RBC Distribution Width CV 13.8 % (11.6-14.6); RBC Distribution Width SD 45.1 fl (35.1-43.9); Red Blood Count 4.54 M/mm3 (4.2-5.4); White Blood Count 10.3 K/mm3 (4.4-11.0)
[2023-03-09 17:11] LABS: AST(SGOT) 13 U/L (15-37); Alanine Aminotransfer ALT/SGPT 19 U/L (13-56); Albumin, Serum 3.9 g/dL (3.2-5.0); Alkaline Phosphatase 89 U/L (45-117); Anion Gap 6 (5-15); BUN 12 mg/dL (7-18); BUN/Creat Ratio 14.6 RATIO (10-20); Calcium,Total 9.3 mg/dL (8.5-10.1); Chloride 105 mmol/L (98-107); Creatinine, Serum 0.82 mg/dL (0.55-1.02); EST Glomerular Filtration Rate 87 mL/min (>60); Est Glom Filt Rate - Afr Amer 105 mL/min (>60); Globulin 3.8 g/dL (2.2-4.2); Glucose 84 mg/dL (74-106); Potassium 4.1 mmol/L (3.5-5.1); Protein, Total 7.7 g/dL (6.4-8.2); Sodium Level 138 mmol/L (136-145); Thyroid Stim Hormone (TSH) 1.77 uIU/mL (0.358-3.74)
== END | disposition home or self-care (01) ==
LOC: BIMLAB 15:58
PROVIDERS: PCP Internal Medicine; Referring Provider Internal Medicine; Visit Provider Internal Medicine
DX: R51.9 Headache, unspecified (principal); G89.29 Other chronic pain
CPT/HCPCS: 36415; 80053; 83735; 84443; 85025

== ENCOUNTER → 2023-07-01 | Outpatient (CLI) | payer MEDICAID, SELFPAY ==
--- NOTE | 2023-07-01 14:04 | NEURO ---
NCS and/or EMG Patient Report Ordering Doctor: Mitali Cifuentes DATE OF SERVICE: 07/01/23 Clinical Summary: This is a 32 year old female patient presenting with symptoms of numbness, tingling, and pain in the right hand. This EMG/NCS was performed to evaluate for right carpal tunnel syndrome. Nerve Conduction Studies Summary: Nerve conduction studies in the right upper extremity were within normal ranges. Needle Examination Summary: Needle examination of select muscles of the right upper extremity was normal. Impression: This a normal study. There is no electrodiagnostic evidence of a right median mononeuropathy at the wrist (carpal tunnel syndrome). Multi Select Codes Neurology Neurology Interp Codes: 87108-68 Musc test done w/n test comp (interp) (1) and 88454-27 Nrv cndj test 7-8 studies (interp)
== END | disposition home or self-care (01) ==
LOC: PSN 13:54
PROVIDERS: PCP Internal Medicine; Referring Provider Internal Medicine; Visit Provider Internal Medicine
DX: R20.0 Anesthesia of skin (principal)

== ENCOUNTER → 2023-12-15 | Outpatient (CLI) | payer MEDICAID, SELFPAY ==
[2023-12-15 12:54] LABS: Vitamin B12 333 pg/mL (211-911)
== END | disposition home or self-care (01) ==
LOC: BIMLAB 11:26
PROVIDERS: PCP Internal Medicine; Visit Provider Internal Medicine
DX: R20.0 Anesthesia of skin (principal)
CPT/HCPCS: 36415; 82306; 82607

== ENCOUNTER → 2024-01-18 | Outpatient (CLI) | payer MEDICAID, SELFPAY | END | disposition home or self-care (01) | LOC: SL 12:14 | PROVIDERS: PCP Internal Medicine; Referring Provider Internal Medicine; Visit Provider Internal Medicine | DX: R29.818 Other symptoms and signs involving the nervous system (principal); G47.10 Hypersomnia, unspecified | CPT/HCPCS: 95806 ==

== ENCOUNTER → 2025-04-27 | Outpatient (CLI) | payer MEDICAID, SELFPAY ==
[2025-04-27 19:27] LABS: Hematocrit 39.9 % (37-47); Hemoglobin 13.2 g/dL (12.0-15.0); Immature Granulocytes Count 0.030 X10^3/uL (0.0-0.0); Mean Corp Hgb Conc 33.1 g/dL (32-36); Mean Corpuscular Volume 93.7 fL (81-99); Mean Platelet Vol. 9.6 fl (6.2-12.0); NRBC Flagged by Analyzer 0 % (0-5); Platelet Count 253 K/mm3 (150-450); RBC Distribution Width CV 13.2 % (11.6-14.6); RBC Distribution Width SD 45.0 fl (35.1-43.9); Red Blood Count 4.26 M/mm3 (4.2-5.4); White Blood Count 10.8 K/mm3 (4.4-11.0)
[2025-04-27 19:34] LABS: AST(SGOT) 21 U/L (<=31); Alanine Aminotransfer ALT/SGPT 19 U/L (<=34); Albumin, Serum 4.4 g/dL (3.5-5.0); Alkaline Phosphatase 83 U/L (35-104); Anion Gap 15 (5-15); BUN 14 mg/dL (4-19); BUN/Creat Ratio 15.6 RATIO (10-20); Calcium,Total 9.7 mg/dL (7.6-11.0); Carbon Dioxide 24.6 mmol/L (21.0-32.0); Chloride 100 mmol/L (98-108); Globulin 2.9 g/dL (2.2-4.2); Glucose 88 mg/dL (70-99); Potassium 3.4 mmol/L (3.3-5.1)
== END | disposition home or self-care (01) ==
LOC: MTLAB 13:58
PROVIDERS: PCP Internal Medicine; Referring Provider Nurse Practitioner Family; Visit Provider Nurse Practitioner Family
DX: G47.9 Sleep disorder, unspecified (principal); R53.83 Other fatigue
CPT/HCPCS: 36415; 80053; 83036; 84439; 84443; 85025

== ENCOUNTER → 2025-05-25 | Outpatient (CLI) | payer MEDICAID, SELFPAY ==
--- NOTE | 2025-05-25 12:26 | US_ITS ---
PROCEDURE: THYROID 05/25/2025 REASON FOR EXAM: ENLARGED THYROID TECHNIQUE: Procedure Code: USTHY Modality: US Procedure: THYROID COMPARISON: None available. FINDINGS: MEASUREMENTS: Right lobe: 4.9 x 2.5 x 1.1 cm. Left lobe: 4.5 x 1.9 x 1.1 cm. Isthmus: 4 mm. RIGHT SIDE: Homogeneous echotexture. No discrete lesion. LEFT SIDE: Homogeneous echotexture. No discrete lesion. ISTHMUS: No evidence of nodule or mass. Normal vascularity without microcalcification. No enlarged lymph nodes within the visualized neck. US/Thyroid IMPRESSION: Normal thyroid ultrasound. Reading Location: [id number]
== END | disposition home or self-care (01) ==
LOC: OPUS 12:21
PROVIDERS: PCP Internal Medicine; Referring Provider Nurse Practitioner Family; Visit Provider Nurse Practitioner Family
DX: E04.9 Nontoxic goiter, unspecified (principal)
CPT/HCPCS: 76536